=== PATIENT | female | born 1940 | race Caucasian/White ===

== ENCOUNTER 2016-06-25 11:49 | Inpatient (IN) | payer OTHER ==
[~2016-06-25] VITALS: Ht 157.5 cm; Wt 93.2 kg
--- NOTE | ~2016-06-25 | CON ---
[place], [place] REPORT OF CONSULTATION NAME: [facility]ISA LOVE [facility] [id number] UNIT #: [id number] ROOM: 509 DOCTOR: RUPESH MONZON MD BIRTHDATE: [birth year] DOS: 06/26/2016 ADDENDUM The patient examined again and discussed with the patient in detail. Mental status has cleared up better. Her repeat troponin came, I was just notified it is 0.226. Discussed with the . He told me that the patient did have jaw pain yesterday in the area and the patient does not have any pain now, hemodynamically stable. No acute ST depression or elevation in the EKG, probably this suggests a non-ST elevation FL or unstable angina. The patient is already on Plavix, FABIOLA inhibitors, lipid lowering agents, aspirin and beta blockers. I agree with the present care. We will get an echocardiogram. I want her to be treated for the pneumonia and then probably set her up for a heart catheterization on Wednesday. If she has recurrent symptoms. We will try to do it sooner or any hemodynamic compromise. I want her to have some antibiotics for the clearing of the pneumonia before the heart catheterization is done. Agree with continuing with heparin for 24 hours and continue with aspirin, Plavix and beta blockers. Thank you for this interesting consultation and I will follow up with you. RUPESH MONZON MD CM:CONSTR:REPORT OF CONSULTATION 0718 06/29/16 1444 interface
--- NOTE | ~2016-06-25 | CON ---
[place], [place] REPORT OF CONSULTATION NAME: LISA LOVE UNIT #: [id number] ROOM: 509 DOCTOR: NICOLÁS GOFFRUPESH BIRTHDATE: [birth year] DOS: 06/26/2016 HISTORY OF PRESENT ILLNESS: The patient is a 76-year-old female admitted with altered mental status, unresponsive at home. She was given fluids and IV Levaquin, states that she does seem to be little better. states that this is how she has been in the past with urinary tract infection and pneumonia. No chest discomfort. The patient has a low dose of Namenda. She was recently been requested referral to a neurologist from the PCP and that has not been done. PAST MEDICAL HISTORY: Significant for coronary artery disease, congestive heart failure, chronic back pain, chronic kidney disease, dementia, depression, hypertension, footdrop gastroesophageal reflux disease. PAST SURGICAL HISTORY: Appendectomy, coronary stent, hypertension and hyperlipidemia, cholecystectomy. SOCIAL HISTORY: Does not drink or smoke. FAMILY HISTORY: Positive for coronary artery disease. HOME MEDICATIONS: Include clopidogrel, lisinopril, magnesium, metoprolol, potassium. REVIEW OF SYSTEMS: Somewhat limited because of altered mental status. HEENT: No visual disturbances or hearing problems. CARDIOVASCULAR SYSTEM: As described in HPI. No chest pain or shortness of breath. RESPIRATORY SYSTEM: No shortness of breath. ABDOMEN: Reports loss of appetite. No pain. GENITOURINARY: No dysuria. NEUROLOGIC: As mentioned in HPI. PSYCHIATRIC: Denies any depression. PHYSICAL EXAMINATION: VITAL SIGNS: Blood pressure is 130/40, patient is in sinus rhythm. HEENT: Unremarkable. NECK: Supple, no JVD. LUNGS: Clear to auscultation and percussion. HEART: Sounds are regular. ABDOMEN: Soft, nontender. NEUROLOGICAL: Moving all the extremities. LABORATORY DATA: Within normal limits. Troponin is negative. Lactic acid is 2.4. Hemoglobin and hematocrit within normal limits. EKG sinus with nonspecific ST-T changes. CT of the head is normal, patchy left perihilar opacity pneumonia. IMPRESSION: Septicemia, fever, probable pneumonia, history of coronary artery disease, chronic kidney disease, dementia, history of congestive heart failure, [place], [place] RE[facility] CONSULTATION [id number] UNIT #: [id number] ROOM: 509 DOCTOR: NICOLÁS GOFF,RUPESH BIRTHDATE: [birth year] altered mental status. Troponin elevation is very minimal which could be multifactorial, could be demand, it is 0.094. No acute EKG changes. RECOMMENDATIONS: Continue the present management. Continue with aspirin and Plavix. Get an echocardiogram. The last echo was in 2016, about 45%, history of CHF. Monitor the heart rate and blood pressure very closely. We will review the echocardiogram. I think it is more demand rather than any cardiac event at this point and we will follow up. RUPESH MONZON MD CM:CONSTR:REPORT OF CONSULTATION 0700 06/27/16 0057 interface
--- NOTE | ~2016-06-25 | CON ---
[place], [place] REPORT OF CONSULTATION NAME: LISA LOVE UNIT #: [id number] ROOM: 509 DOCTOR: AUGIE LÓPEZ MD BIRTHDATE: [birth year] DOS: 06/26/2016 PSYCHIATRIC CONSULTATION CHIEF COMPLAINT: "I have not been acting myself." HISTORY OF PRESENT ILLNESS: This is a 76-year-old white female who presented to the Emergency Room at [facility] due to episodes of unresponsiveness and an alteration in mental status. The patient's attempted to wake her up, but she was almost unarousable and then when she did wake up, she was talking nonsensical and was very confused. She was ultimately admitted to the hospital for further medical evaluation and treatment. Of note, the patient has had significant weight loss in the last year of over 70 pounds and has not been eating well, sleeping well, and has been progressively more confused. PAST MEDICAL HISTORY: Remarkable for coronary artery disease; congestive heart failure; chronic back pain; chronic kidney disease, stage unknown; depression; hypertension; GERD; hyperlipidemia; irritable bowel syndrome; mitral regurg; overactive bladder; and seasonal allergies. MENTAL STATUS: The patient is alert and oriented to person, place, and approximate to time. Mood does seem to be depressed. She is rather flat and blunted with a constricted range. She initially denied depression, but then did admit that she has been depressed and tears rolled in her eyes. She endorsed multiple neurovegetative symptoms as well. There is no hypomania or josue. There are no psychotic symptoms. Memory has some gaps. DIAGNOSES: Major depression, recurrent. Rule out dementia. PLAN: I will discontinue her Celexa in lieu of Remeron 15 mg at bedtime. I will also add zinc sulfate 220 mg in the morning. Both of these should improve her sense of taste and improve appetite while the Remeron will also aid sleep in combat to depression. I do not think at this point, she requires further psychiatric intervention in an inpatient basis, but would benefit from outpatient followup. AUGIE LÓPEZ MD CM:CONSTR:REPORT OF CONSULTATION 1003 06/27/16 0217 interface
[2016-06-25 11:49] VITALS: BP 152/56
[~2016-06-25 11:49] MED LIST: AMBIEN5 MG PO; AMOXIL500 M1 PO; ASPI-COR81 M1; BACTRIM 400 MG-1 TAB PO; DICLOFENAC SOD75 MG PO; KLOR-CON20 MEQ; LISINOPRIL HCTZ1 TA1 PO; LOPRESSOR25 MG PO; LOPRESSOR50 MG PO; MAG-OX 400400 MG PO; MEDROL DOSEPAK4 MG PO; NORVASC5 MG PO; OMEPRAZOLE MAGN20 M1 PO; OXYBUTYNIN5 MG PO; PERCOCET 325 MG1 TA6 PO; PLAVIX75 MG PO; SIMVASTATIN40 MG PO
[2016-06-25] MEDS ORDERED: CYCLOBENZAPRINE10 MG PO (12:11)
[2016-06-25] MEDS ORDERED: DICLOFENAC NA PO (12:11)
[2016-06-25] MEDS ORDERED: ZESTRIL20 MG PO (12:12)
[2016-06-25] MEDS ORDERED: CLARITIN10 MG PO (12:12)
[2016-06-25] MEDS ORDERED: CITALOPRAM10 MG PO (12:12)
[2016-06-25] MEDS ORDERED: MAGNESIUM OXID400 MG PO (12:13)
[2016-06-25] MEDS ORDERED: Lopressor25 MG PO (12:14)
[2016-06-25] MEDS ORDERED: NAMENDA10 MG PO (12:14)
[2016-06-25] MEDS ORDERED: ULTRAM50 MG PO (12:14)
[2016-06-25] MEDS ORDERED: OXYBUTYNIN5 MG PO (12:17)
[2016-06-25] MEDS ORDERED: POTASSIUM GLUCO99 MG PO (12:17)
[2016-06-25] MEDS ORDERED: PLAVIX75 M1 PO (12:18)
[2016-06-25] MEDS ORDERED: OMEPRAZOLE40 MG PO (12:18)
[2016-06-25] MEDS ORDERED: MACROBID100 M1 PO (12:19)
[2016-06-25 12:30] LABS: BILIRUBIN NEGATIVE (NEGATIVE); BLOOD NEGATIVE (NEGATIVE); CLARITY SL CLOUDY (CLEAR); COLOR YELLOW (YELLOW); GLUCOSE NEGATIVE (NEGATIVE); KETONE NEGATIVE (NEGATIVE); LEUKO ESTERASE NEGATIVE (NEGATIVE); NITRITE NEGATIVE (NEGATIVE); PROTEIN 2+ (NEGATIVE); UROBILINOGEN 0.2 E.U./dl (0.2-1.0)
[2016-06-25 12:34] LABS: HEMATOCRIT 32.4 % (37.0-47.0); HEMOGLOBIN 10.4 g/dl (12.0-16.0); MEAN CELL VOLUME 97.9 fl (81.0-99.0); MEAN CORPUSCULAR HGB 31.4 pg (27.0-31.0); MEAN CORPUSCULAR HGB CONC 32.1 g/dl (33.0-37.0); MEAN PLATELET VOLUME 9.6 fl (9.6-12.3); PLATELET COUNT AUTOMATED 110 10*3/uL (130-400); RED BLOOD COUNT 3.31 10*6/uL (4.10-5.10); RED CELL DISTRI WIDTH 13.3 % (0-14.5); WHITE BLOOD COUNT 7.9 10*3/uL (4.8-10.8)
[2016-06-25 12:41] LABS: URINE REFLEX COMMENT NO (NO); WBC 0-2 wbc/hpf (0-5)
[2016-06-25 12:50] LABS: POTASSIUM 3.4 mmol/L (3.5-5.1)
[2016-06-25 12:56] LABS: TROPONIN I 0.094 ng/ml (<0.045)
[2016-06-25 12:59] LABS: LYMPHOCYTE # 0.1 10*3/uL (1.3-4.4); MONOCYTE # 0.2 10*3/uL (0.1-1.0); NEUTROPHIL # 7.7 10*3/uL (2.3-7.9); NEUTROPHILS 97 % (47-73); PLATELET SUFFICIENCY LOW (NORMAL); TEAR DROP CELLS FEW; TOTAL CELLS COUNTED 100 #CELLS
[2016-06-25 13:35] VITALS: BP 161/56
[2016-06-25 14:37] VITALS: BP 155/59
[2016-06-25 16:00] VITALS: BP 139/47
[2016-06-25 16:17] LABS: LA>2 REFLEX 2 HR DRAW NOW
[2016-06-25 16:40] LABS: LA>2 RFLX FOLLOW UP AT 2 HRS 2.4 mmol/L (0.4-2.0)
[2016-06-25 18:31] LABS: LA>2 REFLEX 4 HR DRAW NOW
[2016-06-25 20:00] VITALS: BP 128/97
[2016-06-25 20:30] VITALS: BP 124/82
[2016-06-26] VITALS: BP 127/53
[2016-06-26 07:01] LABS: HEMATOCRIT 30.5 % (37.0-47.0); HEMOGLOBIN 9.8 g/dl (12.0-16.0); MEAN CELL VOLUME 98.1 fl (81.0-99.0); MEAN CORPUSCULAR HGB 31.5 pg (27.0-31.0); MEAN CORPUSCULAR HGB CONC 32.1 g/dl (33.0-37.0); MEAN PLATELET VOLUME 10.4 fl (9.6-12.3); PLATELET COUNT AUTOMATED 109 10*3/uL (130-400); RED BLOOD COUNT 3.11 10*6/uL (4.10-5.10); RED CELL DISTRI WIDTH 13.5 % (0-14.5); WHITE BLOOD COUNT 3.9 10*3/uL (4.8-10.8)
[2016-06-26 07:14] LABS: HEMOGLOBIN A1c 5.9 % (4.8-5.6)
[2016-06-26 07:32] LABS: ALBUMIN 2.7 gm/dl (3.1-4.5); FREE T4 1.33 ng/dl (0.76-1.46); MAGNESIUM 1.7 mg/dL (1.5-2.1); PHOSPHOROUS 3.3 mg/dL (2.5-4.9); POTASSIUM 3.5 mmol/L (3.5-5.1); TOTAL PROTEIN 5.9 gm/dL (6.4-8.2)
[2016-06-26 07:36] LABS: LYMPHOCYTE # 0.2 10*3/uL (1.3-4.4); NEUTROPHIL # 3.7 10*3/uL (2.3-7.9); NEUTROPHILS 94 % (47-73); PLATELET SUFFICIENCY LOW (NORMAL); ROULEAUX SLIGHT; TOTAL CELLS COUNTED 100 #CELLS
[2016-06-26 07:37] LABS: THYROID STIM HORMONE (HS) 1.77 uIU/ml (0.358-4.75)
[2016-06-26 07:58] LABS: VITAMIN D, 25-HYDROXY 34.6 ng/mL (30-100)
[2016-06-26 08:00] VITALS: BP 123/44
[2016-06-26 08:10] LABS: FOLIC ACID > 24.00 ng/mL (>5.38)
[2016-06-26 12:00] VITALS: BP 110/62
[2016-06-26 16:00] VITALS: BP 120/66
[2016-06-26 20:00] VITALS: BP 127/67
[2016-06-27] VITALS: BP 132/50
[2016-06-27 06:39] LABS: BASO % 0.3 % (0.0-1.0); EOS # 0.5 10*3/uL (0.0-0.4); EOS % 12.7 % (1.0-4.0); HEMATOCRIT 30.2 % (37.0-47.0); HEMOGLOBIN 9.5 g/dl (12.0-16.0); LYMPH % 25.5 % (27.0-41.0); MEAN CELL VOLUME 98.4 fl (81.0-99.0); MEAN CORPUSCULAR HGB 30.9 pg (27.0-31.0); MEAN CORPUSCULAR HGB CONC 31.5 g/dl (33.0-37.0); MEAN PLATELET VOLUME 10.3 fl (9.6-12.3); MONO # 0.2 10*3/uL (0.1-1.0); MONO % 5.3 % (3.0-9.0); NEUT # 2.1 10*3/uL (2.3-7.9); NEUT % 55.9 % (47.0-73.0); PLATELET COUNT AUTOMATED 95 10*3/uL (130-400); RED BLOOD COUNT 3.07 10*6/uL (4.10-5.10); RED CELL DISTRI WIDTH 13.3 % (0-14.5); WHITE BLOOD COUNT 3.8 10*3/uL (4.8-10.8)
[2016-06-27 06:55] LABS: ALBUMIN 2.6 gm/dl (3.1-4.5); BILIRUBIN, TOTAL 0.3 mg/dl (0.2-1.0); MAGNESIUM 1.8 mg/dL (1.5-2.1); POTASSIUM 3.2 mmol/L (3.5-5.1); TOTAL PROTEIN 5.5 gm/dL (6.4-8.2)
[2016-06-27 07:13] LABS: TROPONIN I 0.063 ng/ml (<0.045)
[2016-06-27 08:00] VITALS: BP 170/70
[2016-06-27 12:00] VITALS: BP 142/62
[2016-06-27 16:00] VITALS: BP 133/61
[2016-06-27 20:00] VITALS: BP 121/81; BP 134/71
[2016-06-28] VITALS: BP 152/58
[2016-06-28 06:29] LABS: BASO % 0.3 % (0.0-1.0); EOS # 0.5 10*3/uL (0.0-0.4); EOS % 12.4 % (1.0-4.0); HEMATOCRIT 29.3 % (37.0-47.0); HEMOGLOBIN 9.5 g/dl (12.0-16.0); LYMPH # 1.1 10*3/uL (1.3-4.4); LYMPH % 31.1 % (27.0-41.0); MEAN CORPUSCULAR HGB 32.1 pg (27.0-31.0); MEAN CORPUSCULAR HGB CONC 32.4 g/dl (33.0-37.0); MEAN PLATELET VOLUME 10.2 fl (9.6-12.3); MONO # 0.3 10*3/uL (0.1-1.0); MONO % 7.4 % (3.0-9.0); NEUT # 1.8 10*3/uL (2.3-7.9); NEUT % 48.8 % (47.0-73.0); PLATELET COUNT AUTOMATED 116 10*3/uL (130-400); RED BLOOD COUNT 2.96 10*6/uL (4.10-5.10); RED CELL DISTRI WIDTH 13.3 % (0-14.5); WHITE BLOOD COUNT 3.6 10*3/uL (4.8-10.8)
[2016-06-28 06:37] LABS: ALBUMIN 2.5 gm/dl (3.1-4.5); BILIRUBIN, TOTAL 0.2 mg/dl (0.2-1.0); MAGNESIUM 2.3 mg/dL (1.5-2.1); POTASSIUM 3.6 mmol/L (3.5-5.1); TOTAL PROTEIN 5.6 gm/dL (6.4-8.2)
[2016-06-28 06:48] LABS: PROTHROMBIN TIME 10.7 SECONDS (9.0-12.4)
[2016-06-28 08:00] VITALS: BP 160/59
[2016-06-28 12:00] VITALS: BP 178/56
[2016-06-28 16:00] VITALS: BP 155/66
[2016-06-28 20:00] VITALS: BP 151/50
[2016-06-29] VITALS: BP 118/90
== END 2016-06-29 07:00 | disposition other institution (70) | DRG 871 ==
LOC: ED 11:49 → 5E 14:03 → EDHOLD 14:03 → 5E 14:57
PROVIDERS: Emergency Medicine; Internal Medicine
DX: A41.9 Sepsis, unspecified organism (principal); I21.4 Non-ST elevation (NSTEMI) myocardial infarction; E87.2 Acidosis; J18.9 Pneumonia, unspecified organism; I13.0 Hypertensive heart and chronic kidney disease with heart failure and stage 1 through stage 4 chronic kidney disease, or unspecified chronic kidney disease; D69.6 Thrombocytopenia, unspecified; I50.42 Chronic combined systolic (congestive) and diastolic (congestive) heart failure; F03.90 Unspecified dementia, unspecified severity, without behavioral disturbance, psychotic disturbance, mood disturbance, and anxiety; F33.9 Major depressive disorder, recurrent, unspecified; R65.20 Severe sepsis without septic shock; N18.3 Chronic kidney disease, stage 3 (moderate); M54.5 Low back pain; J30.2 Other seasonal allergic rhinitis; K21.9 Gastro-esophageal reflux disease without esophagitis; E78.5 Hyperlipidemia, unspecified; N32.81 Overactive bladder; E78.00 Pure hypercholesterolemia, unspecified; I25.10 Atherosclerotic heart disease of native coronary artery without angina pectoris; Z96.653 Presence of artificial knee joint, bilateral; D64.9 Anemia, unspecified; K58.0 Irritable bowel syndrome with diarrhea; E87.6 Hypokalemia; R73.9 Hyperglycemia, unspecified; R80.9 Proteinuria, unspecified; D72.810 Lymphocytopenia; I34.0 Nonrheumatic mitral (valve) insufficiency; Z95.5 Presence of coronary angioplasty implant and graft; Z90.49 Acquired absence of other specified parts of digestive tract; Z90.710 Acquired absence of both cervix and uterus; Z98.49 Cataract extraction status, unspecified eye; Z86.73 Personal history of transient ischemic attack (TIA), and cerebral infarction without residual deficits; Z80.0 Family history of malignant neoplasm of digestive organs; Z82.3 Family history of stroke; Z84.89 Family history of other specified conditions; Z79.899 Other long term (current) drug therapy; Z82.49 Family history of ischemic heart disease and other diseases of the circulatory system; Z68.37 Body mass index [BMI] 37.0-37.9, adult

== ENCOUNTER 2016-10-28 10:38 | Emergency (ER) | payer OTHER ==
[~2016-10-28] VITALS: Ht 157.4 cm; Wt 90.7 kg
[~2016-10-28 10:38] MED LIST changes: +CITALOPRAM10 MG PO; +CLARITIN10 MG PO; +CYCLOBENZAPRINE10 MG PO; +DICLOFENAC NA PO; +Lopressor25 MG PO; +MACROBID100 M1 PO; +MAGNESIUM OXID400 MG PO; +NAMENDA10 MG PO; +OMEPRAZOLE40 MG PO; +PLAVIX75 M1 PO; +POTASSIUM GLUCO99 MG PO; +ULTRAM50 MG PO; +ZESTRIL20 MG PO
[2016-10-28 11:06] LABS: BASO % 0.4 % (0.0-1.0); EOS # 0.2 10*3/uL (0.0-0.4); HEMATOCRIT 30.1 % (37.0-47.0); HEMOGLOBIN 9.5 g/dl (12.0-16.0); LYMPH # 1.2 10*3/uL (1.3-4.4); LYMPH % 26.4 % (27.0-41.0); MEAN CELL VOLUME 101.7 fl (81.0-99.0); MEAN CORPUSCULAR HGB 32.1 pg (27.0-31.0); MEAN CORPUSCULAR HGB CONC 31.6 g/dl (33.0-37.0); MEAN PLATELET VOLUME 9.6 fl (9.6-12.3); MONO # 0.2 10*3/uL (0.1-1.0); MONO % 5.2 % (3.0-9.0); NEUT # 2.9 10*3/uL (2.3-7.9); NEUT % 62.8 % (47.0-73.0); PLATELET COUNT AUTOMATED 140 10*3/uL (130-400); RED BLOOD COUNT 2.96 10*6/uL (4.10-5.10); RED CELL DISTRI WIDTH 13.2 % (0-14.5); WHITE BLOOD COUNT 4.6 10*3/uL (4.8-10.8)
[2016-10-28 11:09] LABS: BILIRUBIN NEGATIVE (NEGATIVE); BLOOD TRACE-INTACT (NEGATIVE); CLARITY CLOUDY (CLEAR); COLOR YELLOW (YELLOW); GLUCOSE NEGATIVE (NEGATIVE); KETONE NEGATIVE (NEGATIVE); LEUKO ESTERASE TRACE (NEGATIVE); NITRITE NEGATIVE (NEGATIVE); SPECIFIC GRAVITY 1.025 (1.005-1.030); UROBILINOGEN 0.2 E.U./dl (0.2-1.0)
[2016-10-28 11:15] LABS: BACTERIA TRACE; EPITHELIAL CELLS 16-20
[2016-10-28 11:16] LABS: BUN 16 mg/dl (7-24); CHLORIDE 110 mmol/L (98-107); POTASSIUM 3.5 mmol/L (3.5-5.1); SODIUM 147 mmol/L (136-145)
== END 2016-10-28 13:27 | disposition home or self-care (01) ==
LOC: ED 10:38
PROVIDERS: Emergency Medicine
DX: S70.01XA Contusion of right hip, initial encounter (principal); D64.9 Anemia, unspecified; D72.819 Decreased white blood cell count, unspecified; Z88.8 Allergy status to other drugs, medicaments and biological substances; Z79.899 Other long term (current) drug therapy; I10 Essential (primary) hypertension; W01.0XXA Fall on same level from slipping, tripping and stumbling without subsequent striking against object, initial encounter; Y93.89 Activity, other specified; Y92.89 Other specified places as the place of occurrence of the external cause; Y99.8 Other external cause status

== ENCOUNTER → 2016-11-17 | Outpatient (CLI) | payer OTHER ==
[2016-11-17 10:27] LABS: HEMATOCRIT 31.4 % (37.0-47.0); MEAN CORPUSCULAR HGB 32.2 pg (27.0-31.0); MEAN CORPUSCULAR HGB CONC 31.8 g/dl (33.0-37.0); MEAN PLATELET VOLUME 10.1 fl (9.6-12.3); RED BLOOD COUNT 3.11 10*6/uL (4.10-5.10); RED CELL DISTRI WIDTH 13.2 % (0-14.5); WHITE BLOOD COUNT 4.4 10*3/uL (4.8-10.8)
[2016-11-17 10:55] LABS: ALBUMIN 3.2 gm/dl (3.1-4.5); ALKALINE PHOSPHATASE 69 U/L (45-117); BUN 13 mg/dl (7-24); CHLORIDE 109 mmol/L (98-107); CHOLESTEROL 152 mg/dL (<200); CPK 107 U/L (26-192); HDL CHOLESTEROL 51 mg/dl (40-60); LDL CHOLESTEROL 58 mg/dL (9-159); POTASSIUM 2.9 mmol/L (3.5-5.1); SGOT/AST 22 IU/L (3-35); SGPT/ALT 19 U/L (12-78); SODIUM 144 mmol/L (136-145); TOTAL PROTEIN 6.7 gm/dL (6.4-8.2); TRIGLYCERIDES 213 mg/dl (<150); VLDL CHOLESTEROL 43 mg/dL (6-40)
== END | disposition home or self-care (01) ==
LOC: LAB 10:03
PROVIDERS: Family Medicine
DX: I25.10 Atherosclerotic heart disease of native coronary artery without angina pectoris (principal); E78.00 Pure hypercholesterolemia, unspecified; I10 Essential (primary) hypertension; K21.9 Gastro-esophageal reflux disease without esophagitis; E55.9 Vitamin D deficiency, unspecified; F41.1 Generalized anxiety disorder; E74.00 Glycogen storage disease, unspecified

== ENCOUNTER 2016-11-27 09:17 | Inpatient (IN) | payer OTHER ==
[~2016-11-27] VITALS: Ht 162.6 cm; Wt 66.5 kg
[2016-11-27] VITALS (13 sets, daily range): BP systolic 127–162; BP diastolic 47–73
--- NOTE | ~2016-11-27 | WRIGHTHP ---
[place], [place] PATIENT HISTORY AND PHYSICAL EXAM NAME: LISA LOVE [facility] #: [id number] UNIT #: [id number] ROOM: 419 DOCTOR: LEONOR MONTES DE OCA MD BIRTHDATE: [birth year] DOS: 11/27/2016 DIAGNOSES: The patient is a 76-year-old female with: 1. Coronary artery disease. 2. Adult failure to thrive. 3. Chronic kidney disease stage 3. 4. 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 5. Combined systolic, diastolic type congestive heart failure. 6. Major depression, recurrent. 7. Chronic back pain. 8. Benign essential hypertension. 9. Gastroesophageal reflux disease and esophagitis. 10. Overactive bladder. 11. Mixed hyperlipidemia. 12. Irritable bowel syndrome with chronic diarrhea. 13. Normocytic anemia, anemia of chronic disease. 14. Thrombocytopenia, chronic. 15. Chronic hypokalemia. The patient presented to the Emergency Department from home where she has been off and on confused for many months and had multiple hospital admissions. According to patient's daughter, she has been quite confused even more so recently. Previously, patient was confused when she had a urinary tract infection and she normally lives at home and is helped by her . There have been no complaints of any chest pain, no shortness of breath, no GI or urinary symptoms except for chronic diarrhea. REVIEW OF SYSTEMS: LUNGS: No increasing shortness of breath or wheezing. GASTROINTESTINAL: No nausea, vomiting. Chronic diarrhea, and no history of constipation. CARDIOVASCULAR SYSTEM: No chest pains or palpitations. ALLERGIES: No known drug allergies. PHYSICAL EXAMINATION: GENERAL APPEARANCE: The patient does wake up, but goes right back to sleep. She is pleasantly confused. Moderate obesity and generalized weakness, trace leg and pedal edema and mental confusion. VITAL SIGNS: Blood pressure 127/73, breathing normally, heart rate of 77 beats per minute, temperature 99.1 degrees Fahrenheit. HEENT AND NECK: Extraocular movements are intact. Sclerae are anicteric. Oral mucosa is moist and clean. No obvious facial weakness. Neck is supple without any lymphadenopathy. No thyromegaly. No JVD. No carotid arterial bruits. LUNGS: Clear to auscultation. No wheezing. No rhonchi. CARDIOVASCULAR SYSTEM: Heart rate is regular in rate and rhythm. S1 and S2 normally audible. No significant murmur or any other abnormal cardiac sounds. ABDOMEN: Soft, nontender. No obvious organomegaly. Bowel sounds are present. No obvious herniation. EXTREMITIES: Without significant cyanosis or edema. Warm to touch. [place], [place] PATIENT HISTORY AND PHYSICAL EXAM NAME: LISA LOVE UNIT #: [id number] ROOM: 419 DOCTOR: LEONOR MONTES DE OCA MD BIRTHDATE: [birth year] CENTRAL NERVOUS SYSTEM: Alert and oriented x 3. Cranial nerves II-XII are intact. Speech is normal. The patient is able to move all extremities. Normal muscle strength. Deep tendon reflexes are equal on both sides. Plantars were downgoing. LABORATORY DATA: CT of the abdomen and pelvis without any acute abnormality. Repeat lactic acid level was normal at 1.1. Chest x-ray showing no acute process. Urinalysis showing no signs of urine infection, no leukocytosis on CBC. hemoglobin 9.5. Normal serum electrolytes except for potassium low at 3, some elevation of liver enzymes. AST 318, ALT 130, alkaline phosphatase 156. PT, PTT were baseline. Urine cultures were negative. IMPRESSION: The patient with severe adult failure to thrive. I will take bedsore precautions, turn her every 2 hours and using an air mattress. The patient also has gydr-rs-ubtqdezf protein calorie malnutrition. The patient has no obvious reason for decline except for adult failure to thrive and Alzheimer's type dementia. 1. Wdtw-pa-usqoqxmi protein-calorie malnutrition. Dietary to follow. The patient has not been eating well. 2. Chronic hypokalemia, apparently related to chronic diarrhea, which has been blamed on irritable bowel syndrome in the past. I will check his stool for C. diff and continue potassium supplements. The patient was also on diuretics, which has been stopped. 3. History of coronary artery disease of the [place] vessels without any recent chest pains. 4. Mixed systolic, diastolic type chronic congestive heart failure, compensated. 5. Benign essential hypertension. I will monitor blood pressures and treat accordingly. Overall, adult failure to thrive, I will try to get her to half-way facility for rehabilitation and I have asked the family to consider changing code status to DNR comfort care because of her progressive decline of her health, which is apparently age-related and her overall health status is poor including protein-calorie malnutrition and persistent failure to thrive. I am also consulting palliative care to talk to the family. [place], [place] PATIENT HISTORY AND PHYSICAL EXAM NAME: LISA LOVE UNIT #: [id number] ROOM: [facility] DOCTOR: LEONOR MONTES DE OCA MD BIRTHDATE: [birth year] LEONOR MONTES DE OCA MD CM:HISPHYS:PATIENT HISTORY AND PHYSICAL EXAMINATION [phone] LEONOR MONTES DE OCA MD 11/27/162156 interface
--- NOTE | ~2016-11-27 | DS ---
[place], [place] DISCHARGE SUMMARY NAME: LISA LOVE [facility] #: [id number] UNIT #: [id number] ROOM: 419 DOCTOR: LEONOR MONTES DE OCA MD BIRTHDATE: [birth year] DOS: 11/28/2016 DISCHARGE DIAGNOSES: 1. Altered mental status. The patient back to being alert and oriented. 2. Chronic diarrhea, Clostridium difficile, stool negative. 3. Urine cultures negative. 4. Chronic hypokalemia, apparently related to chronic diarrhea, treated. 5. Anemia of chronic disease. 6. Chronic kidney disease stage 3. 7. Adult failure to thrive. 8. Coronary artery disease of hughes vessels. 9. Combined systolic and diastolic type congestive heart failure. 10. Benign essential hypertension. 11. Gastroesophageal reflux disease and esophagitis. 12. Mixed hyperlipidemia. 13. Irritable bowel syndrome. 14. Normocytic anemia of chronic disease. 15. Chronic thrombocytopenia. HOSPITAL COURSE: The patient presented to the Emergency Department where she was being taken care of at home. The patient does get confused off and on and she became very confused the day before admission and was brought to the Emergency Department and admitted. The patient had no obvious signs of any lung or kidney infection and no leukocytosis, but she did have minor left shift with 90% segs and she did get a fever of up to 101 degrees Fahrenheit after admission. The patient is afebrile now and alert and oriented x 3 this morning and also ambulating. The patient's daughters are present with her and would take her home since she appears to have achieved maximum benefit from this admission. Late onset of Alzheimer's type dementia and combined delirium. The patient was taken off tramadol and started on Tylenol 1000 mg 3 times a day for pain control. I have also recommended that family should check on her Namenda and parameter and see how patient does without taking these medications and then decide whether these medications need to be continued. Idea is that keep her on minimum medications and see how she does. Adult failure to thrive and mental confusion off and on. The patient may require senior living placement if her condition does not improve. The patient's takes care of at home. Benign essential hypertension with controlled blood pressures with treatment. Blood pressures were be monitored. Chronic diarrhea from uncertain etiology. Stool for C. diff toxin was negative. Chronic hypokalemia, apparently related to diarrhea. The patient's potassium levels were replaced and have normalized. [place], [place] DISCHARGE SUMMARY NAME: LISA LOVE [facility] #: [id number] UNIT #: [id number] ROOM: 419 DOCTOR: FALGUNI GOFF,LEONOR Fleming BIRTHDATE: [birth year] Late onset Alzheimer's type dementia, treated with Namenda. Chronic kidney disease stage 3, stable. Coronary artery disease of hughes vessels without chest pains. LABORATORY DATA: Normal serum electrolytes. Even BUN and creatinine have normalized after patient's Lasix was stopped. The patient's potassium level needs to be followed as an outpatient. The patient to be followed by Dr. Juan Alberto Goncalves, her PCP. The patient has been asked to follow up with her PCP on Wednesday soon after discharge. DISCHARGE MANAGEMENT: Potassium chloride 40 mEq daily, memantine 10 mg daily, magnesium oxide 400 mg b.i.d., lisinopril 20 mg a day, Plavix 75 mg a day, citalopram 10 mg daily. Followup with PCP, Dr. Juan Alberto Goncalves within a few days, which is on Wednesday. Tylenol 1000 mg 3 times a day. LEONOR MONTES DE OCA MD CM:VERONICA [id number] LEONOR MONTES DE OCA MD 11/28/161846 interface
[2016-11-27 10:06] LABS: HEMATOCRIT 30.8 % (37.0-47.0); HEMOGLOBIN 9.5 g/dl (12.0-16.0); MEAN CELL VOLUME 103.7 fl (81.0-99.0); MEAN CORPUSCULAR HGB CONC 30.8 g/dl (33.0-37.0); MEAN PLATELET VOLUME 10.1 fl (9.6-12.3); PLATELET COUNT AUTOMATED 123 10*3/uL (130-400); RED BLOOD COUNT 2.97 10*6/uL (4.10-5.10); RED CELL DISTRI WIDTH 13.2 % (0-14.5); WHITE BLOOD COUNT 6.3 10*3/uL (4.8-10.8)
[2016-11-27 10:16] LABS: ACT PARTIAL THROMBO TIME 21.2 SECONDS (20.8-31.5); INTERNATIONAL NORM RATIO 1.1 (2.0-3.5)
[2016-11-27 10:21] LABS: ALBUMIN 2.9 gm/dl (3.1-4.5); ALKALINE PHOSPHATASE 156 U/L (45-117); BUN 14 mg/dl (7-24); CHLORIDE 113 mmol/L (98-107); CREATININE 0.92 mg/dL (0.55-1.02); LIPASE 202 U/L (73-393); MAGNESIUM 1.3 mg/dL (1.5-2.1); SGOT/AST 318 IU/L (3-35); SGPT/ALT 130 U/L (12-78); SODIUM 145 mmol/L (136-145); TOTAL PROTEIN 6.3 gm/dL (6.4-8.2)
[2016-11-27 10:33] LABS: PLATELET SUFFICIENCY LOW (NORMAL); TOTAL CELLS COUNTED 100 #CELLS
[2016-11-27 10:55] LABS: BILIRUBIN NEGATIVE (NEGATIVE); BLOOD 1+ (NEGATIVE); CLARITY CLEAR (CLEAR); COLOR YELLOW (YELLOW); GLUCOSE NEGATIVE (NEGATIVE); KETONE NEGATIVE (NEGATIVE); LEUKO ESTERASE NEGATIVE (NEGATIVE); NITRITE NEGATIVE (NEGATIVE); PH 6.5 (5.0-9.0); UROBILINOGEN 0.2 E.U./dl (0.2-1.0)
[2016-11-27] MEDS ORDERED: NITROFURANTOIN100 M9 PO (11:22)
--- NOTE | 2016-11-27 12:12 | NUR ---
PT AWAITING CAT SCAN AND ADMISSION. RESTING COMFORTABLY IN BED. NO ACUTE DISTRESS NOTED. NO VOICED NEEDS/COMPLAINTS AT THIS TIME. VSS. FAMILY AT BEDSIDE. WILL CONTINUE TO MONITOR.
--- NOTE | 2016-11-27 13:40 | NUR ---
PLEASANTLY CONFUSED. MEDICATED FOR ABDOMINAL PAIN, SEE EMAR. SPO2 99% ON 2L PER NC. FAMILY AT BEDSIDE. PATIENT TRASPORTED VIA CART TO CT SCAN. CONDITION STABLE.
--- NOTE | 2016-11-27 15:09 | NUR ---
WAS NOTIFIED/REPORTED BY SAADIA FROM ER ON PT. WILL ASSUME CARE OF PT.
[2016-11-27] MEDS ORDERED: LASIX40 MG PO (16:56)
[2016-11-27] MEDS ORDERED: KLOR-CON M2020 ME1 PO (16:57)
--- NOTE | 2016-11-27 17:10 | NUR ---
SPOKE TO DR. MONTES DE OCA PER TELEPHONE ON DIET ORDER AND AND PAIN PRN MED. HE ORDERED A REGULAR DIET, AND TYLENOL 1000MG TID. WILL CONTINUE TO MONITOR PT.
--- NOTE | 2016-11-27 18:27 | NUR ---
A 76, admitted to 4E, under the services of Dr. FALGUNI GOFF,LEONOR Fleming with a diagnosis of METABOLIC ENCEPHALOPATHY, ELEVATED LFTS. Chief complaint is WEAKNESS, UTI SYMPTOMS. Patient arrived via ambulatory from ER. Monitor applied. Initial assessment completed. Vital signs taken and recorded. DR. FALGUNI GOFF,LEONOR Fleming notified of admission to the unit. Orders received. See assessment for past medical history, medications and allergies. Patient and/or family oriented to unit. [facility] visitation policy reviewed. Clothing/patient valuable form completed. RAY LARSON
--- NOTE | 2016-11-27 19:45 | NUR ---
WAS NOTIFIED OF PATIENT'S TEMP OF 101. TALKED TO DR. MONTES DE OCA. NEW ORDER TO GIVE ANOTHER DOSE OF TYLENOL AND BLOOD CULTURES. WILL REASSESS AFTER TYLENOL GIVEN.
--- NOTE | 2016-11-27 20:09 | NUR ---
TYLENOL GIVEN FOR TEMP OF 101. WILL REASSESS.
--- NOTE | 2016-11-27 22:18 | NUR ---
TYLENOL EFFECTIVE FOR TEMP OF 101, NOW 98.7
[2016-11-28] VITALS: BP 154/66
[2016-11-28 06:16] LABS: BASO % 0.2 % (0.0-1.0); EOS # 0.1 10*3/uL (0.0-0.4); EOS % 2.2 % (1.0-4.0); HEMATOCRIT 29.7 % (37.0-47.0); HEMOGLOBIN 9.1 g/dl (12.0-16.0); LYMPH # 0.4 10*3/uL (1.3-4.4); LYMPH % 7.7 % (27.0-41.0); MEAN CELL VOLUME 102.8 fl (81.0-99.0); MEAN CORPUSCULAR HGB 31.5 pg (27.0-31.0); MEAN CORPUSCULAR HGB CONC 30.6 g/dl (33.0-37.0); MEAN PLATELET VOLUME 10.7 fl (9.6-12.3); MONO # 0.3 10*3/uL (0.1-1.0); MONO % 5.3 % (3.0-9.0); NEUT # 4.2 10*3/uL (2.3-7.9); NEUT % 84.2 % (47.0-73.0); PLATELET COUNT AUTOMATED 111 10*3/uL (130-400); RED BLOOD COUNT 2.89 10*6/uL (4.10-5.10); RED CELL DISTRI WIDTH 13.4 % (0-14.5); WHITE BLOOD COUNT 4.9 10*3/uL (4.8-10.8)
[2016-11-28 06:25] LABS: BUN 18 mg/dl (7-24); CHLORIDE 113 mmol/L (98-107); CREATININE 0.83 mg/dL (0.55-1.02); POTASSIUM 3.7 mmol/L (3.5-5.1); SODIUM 145 mmol/L (136-145)
--- NOTE | 2016-11-28 06:50 | NUR ---
24 HR chart check completed.
[2016-11-28 08:00] VITALS: BP 140/72
--- NOTE | 2016-11-28 09:20 | NUR ---
PATIENT IS RESTING COMFORTABLY IN BED. PATIENT STATES THAT THEY ARE FEELING MUCH BETTER TODAY. PATIENT IS ON THE MONITOR WITH NSR WITH OCC PVC. PATIENT DENIES ANY PAIN, DISCOMFORT, OR SOB. SEE SHIFT ASSESSMENT. HOB AT 30 DEGREES, CALL LIGHT IS WITHIN REACH.
[2016-11-28 12:00] VITALS: BP 144/74
--- NOTE | 2016-11-28 12:46 | NUR ---
PATIENT FAMILY AND PATIENT WERE REQUESTING AN ANTI-DIARRHEAL. PATIENTS STOOL WAS LOOSE BUT STILL FORMED, BUT FAMILY STILL WANTED ONE DUE TO CHRONIC DIARRHEA AND USE AT HOME. PATIENT ALSO HAD ESCORIATED SKIN UNDER THE BREASTS AND PERITONEAL AREA. WAS CONTACTED AND SAID ORDERS WOULD BE PUT IN.
[2016-11-28] MEDS ORDERED: TYLENOL EXTRA500 MG PO (15:31)
--- NOTE | 2016-11-28 16:29 | NUR ---
[facility] Discharge instructions reviewed with patient/family. Patient receptive and verbalizes understanding. Follow-up care arranged. Written instructions given to patient/family. CHANTE SANTOS
== END 2016-11-28 16:29 | disposition home or self-care (01) | DRG 391 ==
LOC: ED 09:17 → EDHOLD 14:46 → 4E 15:03
PROVIDERS: Emergency Medicine; ADMIT Internal Medicine
DX: K52.9 Noninfective gastroenteritis and colitis, unspecified (principal); G93.41 Metabolic encephalopathy; E44.0 Moderate protein-calorie malnutrition; I13.0 Hypertensive heart and chronic kidney disease with heart failure and stage 1 through stage 4 chronic kidney disease, or unspecified chronic kidney disease; N18.3 Chronic kidney disease, stage 3 (moderate); D69.6 Thrombocytopenia, unspecified; I50.42 Chronic combined systolic (congestive) and diastolic (congestive) heart failure; F05 Delirium due to known physiological condition; F33.9 Major depressive disorder, recurrent, unspecified; G30.1 Alzheimer's disease with late onset; D63.8 Anemia in other chronic diseases classified elsewhere; E87.6 Hypokalemia; R62.7 Adult failure to thrive; I25.10 Atherosclerotic heart disease of native coronary artery without angina pectoris; K21.0 Gastro-esophageal reflux disease with esophagitis; Z51.5 Encounter for palliative care; E78.2 Mixed hyperlipidemia; Z66 Do not resuscitate; F02.80 Dementia in other diseases classified elsewhere, unspecified severity, without behavioral disturbance, psychotic disturbance, mood disturbance, and anxiety; Z96.653 Presence of artificial knee joint, bilateral; E78.00 Pure hypercholesterolemia, unspecified; G89.29 Other chronic pain; M54.9 Dorsalgia, unspecified; Z95.5 Presence of coronary angioplasty implant and graft; Z90.49 Acquired absence of other specified parts of digestive tract; Z79.899 Other long term (current) drug therapy; Z98.41 Cataract extraction status, right eye; Z98.42 Cataract extraction status, left eye; Z90.710 Acquired absence of both cervix and uterus; I25.2 Old myocardial infarction; Z82.3 Family history of stroke; Z80.49 Family history of malignant neoplasm of other genital organs; Z83.3 Family history of diabetes mellitus; Z68.30 Body mass index [BMI] 30.0-30.9, adult

== ENCOUNTER → 2017-01-20 | Outpatient (CLI) | payer OTHER ==
[~2017-01-20] MED LIST changes: +KLOR-CON M2020 ME1 PO; +LASIX40 MG PO; +NITROFURANTOIN100 M9 PO; +TYLENOL EXTRA500 MG PO
[2017-01-20 12:25] LABS: HEMOGLOBIN 9.7 g/dl (12.0-16.0); MEAN CORPUSCULAR HGB 32.6 pg (27.0-31.0); MEAN CORPUSCULAR HGB CONC 31.3 g/dl (33.0-37.0); MEAN PLATELET VOLUME 9.9 fl (9.6-12.3); RED BLOOD COUNT 2.98 10*6/uL (4.10-5.10); RED CELL DISTRI WIDTH 14.3 % (0-14.5); WHITE BLOOD COUNT 5.6 10*3/uL (4.8-10.8)
[2017-01-20 12:53] LABS: ALBUMIN 3.4 gm/dl (3.1-4.5); CREATININE 1.32 mg/dL (0.55-1.02); POTASSIUM 4.9 mmol/L (3.5-5.1)
[2017-01-20 12:55] LABS: TOTAL PROTEIN 7.4 gm/dL (6.4-8.2)
== END | disposition home or self-care (01) ==
LOC: LAB 11:52
PROVIDERS: Family Medicine
DX: E78.00 Pure hypercholesterolemia, unspecified (principal); I10 Essential (primary) hypertension; D64.9 Anemia, unspecified; R19.7 Diarrhea, unspecified; M19.90 Unspecified osteoarthritis, unspecified site

== ENCOUNTER → 2017-03-29 | Outpatient (CLI) | payer OTHER ==
[2017-03-29 11:49] LABS: ALBUMIN 3.4 gm/dl (3.1-4.5); CREATININE 1.11 mg/dL (0.55-1.02); POTASSIUM 4.2 mmol/L (3.5-5.1); TOTAL PROTEIN 7.7 gm/dL (6.4-8.2)
[2017-03-29 11:57] LABS: HEMATOCRIT 32.9 % (37.0-47.0); HEMOGLOBIN 10.2 g/dl (12.0-16.0); MEAN CELL VOLUME 103.5 fl (81.0-99.0); MEAN CORPUSCULAR HGB 32.1 pg (27.0-31.0); MEAN PLATELET VOLUME 9.7 fl (9.6-12.3); RED BLOOD COUNT 3.18 10*6/uL (4.10-5.10); RED CELL DISTRI WIDTH 12.4 % (0-14.5); WHITE BLOOD COUNT 7.2 10*3/uL (4.8-10.8)
== END | disposition home or self-care (01) ==
LOC: LAB 10:59
PROVIDERS: Family Medicine
DX: D64.9 Anemia, unspecified (principal)

== ENCOUNTER 2018-03-29 18:18 | Inpatient (IN) | payer OTHER ==
[~2018-03-29] VITALS: Ht 160 cm; Wt 92.1 kg
--- NOTE | ~2018-03-29 | PR ---
[place], [place] PROGRESS NOTE NAME: LISA LOVE [facility] #: [id number] UNIT #: [id number] ROOM: 509 DOCTOR: MEDINA ARTHUR MD BIRTHDATE: [birth year] DOS: 04/03/2018 SUBJECTIVE: I saw this patient yesterday. She has dementia and chronic atrial fibrillation, rate was somewhat fast. Yesterday, she was somewhat lethargic and this may have been from large dose of metoprolol; therefore, this was reduced to 25 b.i.d. and diltiazem CD 120 daily was added. This morning, she feels fine. She does not have any chest pain or breathing difficulty. No palpitations. She is a little depressed. Currently, her daughter is sick and is in a hospital in [place]. PHYSICAL EXAMINATION: GENERAL: The patient who is somewhat tired looking, seems depressed. She is not tachypneic. VITAL SIGNS: Temperature is normal. Pulse is 76, irregular, blood pressure 106/58. NECK: Normal JVP. LUNGS: She has lot of crackles, does have rhonchi in both lungs. EXTREMITIES: No edema in lower extremity. Monitor shows atrial fibrillation with rate in the 70s and 80s. IMPRESSION: This patient's atrial fibrillation is chronic and rate is now nicely controlled with 120 mg of diltiazem and 25 b.i.d. of the metoprolol tartrate. This should be continued. She is anticoagulated. MEDINA ARTHUR MD CM:PNANTOLIN [id number] MEDINA ARTHUR MD 04/11/18 1031 interface
--- NOTE | ~2018-03-29 | CON ---
[place], [place] REPORT OF CONSULTATION [id number] UNIT #: [id number] ROOM: 509 DOCTOR: MEDINA ARTHUR MD BIRTHDATE: [birth year] DOS: 04/02/2018 HISTORY OF PRESENT ILLNESS: This is a 78-year-old -[place] woman with a history of chronic atrial fibrillation, coronary artery disease and carries a diagnosis of congestive heart failure, chronic kidney disease stage 3, dementia, depression, essential hypertension, hyperlipidemia who has had coronary stents, appendectomy, back surgery, bilateral knee replacement, hysterectomy, tonsillectomy and adenoidectomy, cataract extraction with lens implant, cholecystectomy and rectal fistula surgery. She does not smoke nor does she drink alcoholic beverages. She was admitted through the Emergency Department. She apparently had been developing generalized weakness and had been falling, although she did not hurt herself. I reviewed HPI of the resident and it appeared that she had fallen a few times. She did not have any palpitation, chest pain or breathing difficulty or swelling in the legs. When she had atrial fibrillation with rapid ventricular rate upon admission, dose of beta amber was increased. HOME MEDICATIONS: Include biotin, cholecalciferol, cyanocobalamin p.o., furosemide 40 mg daily, magnesium oxide 400 b.i.d., Namenda 10 mg daily, metoprolol tartrate 25 mg b.i.d., Remeron 30 mg daily, rivaroxaban 15 mg daily and simvastatin 40 mg daily. PHYSICAL EXAMINATION: GENERAL: This reveals a patient who is sitting in a chair. She is comfortable. She is little slow and answers questions, but some may not be appropriate. She is not in any distress. VITAL SIGNS: Temperature is normal, pulse is irregular at 112 beats per minute, blood pressure 131/76. NECK: JVP is normal. AJR is negative. CARDIAC: Auscultation reveals irregular heart rate at about 108 beats per minute. No murmurs are present and she has trace edema in the lower extremities. RESPIRATORY: She is not tachypneic and percussion note is normal. Auscultation reveals moderately diminished breath sounds bilaterally with a lot of rhonchi and crackles bilaterally. DIAGNOSTIC STUDIES: An ECG had demonstrated atrial fibrillation with a ventricular rate of 129 beats per minute and no infarction. Minimal ST segment depression in chest leads raises the possibility of ischemia. A chest x-ray did not demonstrate any obvious abnormality. LABORATORY DATA: BUN 15, creatinine 1.16, potassium 3.7. ProBNP 10,911. Normal liver enzymes. Troponin was less than 0.035. IMPRESSION: 1. Chronic atrial fibrillation with rapid ventricular rate. A dose of metoprolol was increased to 100 mg b.i.d. and the heart rate has slowed down; however, she seems rather lethargic to me. This may be what she normally is [place], [place] REPORT OF CONSULTATION NAME: LISA LOVE UNIT #: [id number] ROOM: 509 DOCTOR: SANDHYA GOFF,MEDINA BIRTHDATE: [birth year] like, but beta blockers are notorious for causing tired and lethargic feeling. 2. There is no evidence of cardiac decompensation. 3. Coronary artery disease with minimal ST segment depression on initial ECG, but troponin I level is negative. RECOMMENDATIONS: 1. Diltiazem CD 120 mg once a day and will reduce the dose of metoprolol tartrate to 25 mg b.i.d. 2. Her previous echocardiogram had shown normal LV function. She does not require another one. 3. There is no evidence of cardiac decompensation. I thank you on behalf of Dr. Ramos for this consult. MEDINA ARTHUR MD CM:CONSTR:REPORT OF CONSULTATION 1334 04/02/18 1404 interface
--- NOTE | ~2018-03-29 | EKG ---
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
--- NOTE | ~2018-03-29 | EKG ---
[place], [place] ELECTROCARDIOGRAM REPORT NAME: LISA LOVE UNIT #: [id number] ROOM: 509 DOCTOR: EPIPHANY DRAFT REPORT BIRTHDATE: [birth year] [facility] Test Date: 2018-03-29 Test Time: 21:21:38 Pat Name: LISA LOVE Department: 5E Room: 509 Gender: F Maintenance Man: Svetlana Gutiérrez : 1940 Requested By: SWETHA MONTANEZ Order Number: [id number] Reading MD: Phu Mendez MD Measurements Intervals [place] Rate: 129 P: NM: QRS: -3 QRSD: 69 T: 9 QT: 324 QTc: 492 Interpretive Statements Atrial fibrillation Borderline repolarization abnormality Electronically Signed On 03-29-2018 19:33:15 PST by Phu Mendez MD CM:EKGRPT:ELECTROCARDIOGRAM REPORT 20 32 SWETHA MONTANEZ MD EPIPHANY DRAFT REPORT SWETHA MONTANEZ MD
[2018-03-29 18:19] VITALS: BP 141/84
--- NOTE | 2018-03-29 18:28 | NUR ---
NURSE REPORT TO BAYRON HO , FOR CONTINUATION OF CARE.
[2018-03-29 19:00] LABS: BASO % 0.2 % (0.0-1.0); EOS % 0.1 % (1.0-4.0); HEMATOCRIT 36.2 % (37.0-47.0); HEMOGLOBIN 11.8 g/dl (12.0-16.0); LYMPH # 1.1 10*3/uL (1.3-4.4); LYMPH % 8.1 % (27.0-41.0); MEAN CELL VOLUME 100.8 fl (81.0-99.0); MEAN CORPUSCULAR HGB 32.9 pg (27.0-31.0); MEAN CORPUSCULAR HGB CONC 32.6 g/dl (33.0-37.0); MEAN PLATELET VOLUME 10.5 fl (9.6-12.3); MONO # 0.6 10*3/uL (0.1-1.0); MONO % 4.9 % (3.0-9.0); NEUT # 11.3 10*3/uL (2.3-7.9); NEUT % 86.3 % (47.0-73.0); PLATELET COUNT AUTOMATED 184 10*3/uL (130-400); RED BLOOD COUNT 3.59 10*6/uL (4.10-5.10); RED CELL DISTRI WIDTH 14.1 % (0-14.5)
--- NOTE | 2018-03-29 19:10 | NUR ---
REPORT RECEIVED FROM [place] VERMA AT THIS TIME
[2018-03-29 19:16] LABS: ACT PARTIAL THROMBO TIME 28.3 SECONDS (20.8-31.5); INTERNATIONAL NORM RATIO 1.1 (2.0-3.5)
[2018-03-29 19:29] LABS: BILIRUBIN NEGATIVE (NEGATIVE); BLOOD 1+ (NEGATIVE); CLARITY SL CLOUDY (CLEAR); COLOR YELLOW (YELLOW); GLUCOSE NEGATIVE (NEGATIVE); KETONE NEGATIVE (NEGATIVE); LEUKO ESTERASE NEGATIVE (NEGATIVE); NITRITE NEGATIVE (NEGATIVE); PH 6.5 (5.0-9.0); UROBILINOGEN 0.2 E.U./dl (0.2-1.0)
[2018-03-29 19:49] LABS: ALBUMIN 2.8 gm/dl (3.1-4.5); CREATININE 1.16 mg/dL (0.55-1.02); POTASSIUM 3.7 mmol/L (3.5-5.1); TOTAL PROTEIN 6.6 gm/dL (6.4-8.2); TROPONIN I 0.035 ng/ml (<0.045)
[2018-03-29 19:49] LABS: BACTERIA 1+; EPITHELIAL CELLS 0-2; RBC 0-2 rbc/hpf (0-2)
[2018-03-29 20:15] VITALS: BP 143/88
[2018-03-29 20:58] VITALS: BP 124/80
[2018-03-29 21:25] VITALS: BP 120/61
[2018-03-29 21:50] VITALS: BP 126/66
--- NOTE | 2018-03-29 21:50 | NUR ---
Time: 2149 A 78 year old FEMALE admitted to 5E under services of ARNULFO FORBES DO. Pt. arrived via stretcher from ER. Chief complaint: SEPSIS, AFIB WITH RVR, CHANGE IN MENTAL STATUS. ANASTASIYA SINGH
--- NOTE | 2018-03-29 21:50 | NUR ---
ED BAYRON CARNES STATES THAT WOUND PHOTOS WERE TAKEN IN ED.
[2018-03-30] VITALS (9 sets, daily range): BP systolic 104–129; BP diastolic 52–90
[2018-03-30] MEDS ORDERED: REMERON30 M1 PO (00:13)
[2018-03-30] MEDS ORDERED: OMEGA 3 1,0001 EACH PO (00:13)
[2018-03-30] MEDS ORDERED: HARD NAILS2500 MCG PO (00:14)
[2018-03-30] MEDS ORDERED: VITAMIN D5000 UNIT PO (00:14)
[2018-03-30] MEDS ORDERED: VITAMIN B121000 MC1 PO (00:15)
[2018-03-30] MEDS ORDERED: XARELTO15 M1 PO (00:16)
--- NOTE | 2018-03-30 01:01 | NUR ---
IV ACCESSED IN RIGHT WRIST. FLUSHES EASILY WITH BRISK BLOOD RETURN. PT TOLERATED WELL.
--- NOTE | 2018-03-30 07:46 | NUR ---
PHYSICAL THERAPY Nursing screen received. PT orders also received. Thank you. Jenna Parker,PT
[2018-03-30 07:48] LABS: ALBUMIN 2.7 gm/dl (3.1-4.5); ALKALINE PHOSPHATASE 71 U/L (45-117); BUN 14 mg/dl (7-24); CHLORIDE 113 mmol/L (98-107); CHOLESTEROL 153 mg/dL (<200); CREATININE 1.03 mg/dL (0.55-1.02); FREE T4 1.07 ng/dl (0.76-1.46); HDL CHOLESTEROL 55 mg/dl (40-60); LDL CHOLESTEROL 77 mg/dL (9-159); PHOSPHOROUS 3.3 mg/dL (2.5-4.9); POTASSIUM 3.7 mmol/L (3.5-5.1); SGOT/AST 20 IU/L (3-35); SGPT/ALT 14 U/L (12-78); SODIUM 146 mmol/L (136-145); TOTAL PROTEIN 5.7 gm/dL (6.4-8.2); TRIGLYCERIDES 104 mg/dl (<150); VLDL CHOLESTEROL 21 mg/dL (6-40)
[2018-03-30 07:53] LABS: VITAMIN D, 25-HYDROXY 29.3 ng/mL (30-100)
[2018-03-30 07:55] LABS: BASO % 0.2 % (0.0-1.0); EOS # 0.1 10*3/uL (0.0-0.4); EOS % 1.3 % (1.0-4.0); HEMATOCRIT 35.1 % (37.0-47.0); HEMOGLOBIN 10.7 g/dl (12.0-16.0); LYMPH # 0.9 10*3/uL (1.3-4.4); LYMPH % 10.3 % (27.0-41.0); MEAN CORPUSCULAR HGB 31.9 pg (27.0-31.0); MEAN CORPUSCULAR HGB CONC 30.5 g/dl (33.0-37.0); MEAN PLATELET VOLUME 10.5 fl (9.6-12.3); MONO # 0.5 10*3/uL (0.1-1.0); MONO % 5.2 % (3.0-9.0); NEUT # 7.4 10*3/uL (2.3-7.9); NEUT % 82.7 % (47.0-73.0); PLATELET COUNT AUTOMATED 142 10*3/uL (130-400); RED BLOOD COUNT 3.35 10*6/uL (4.10-5.10); RED CELL DISTRI WIDTH 14.1 % (0-14.5); WHITE BLOOD COUNT 8.9 10*3/uL (4.8-10.8)
[2018-03-30 07:56] LABS: MEAN CELL VOLUME 104.8 fl (81.0-99.0)
[2018-03-30 08:05] LABS: ACT PARTIAL THROMBO TIME 31.7 SECONDS (20.8-31.5); INTERNATIONAL NORM RATIO 1.1 (2.0-3.5)
--- NOTE | 2018-03-30 08:55 | NUR ---
LISA LOVE [id number] Please refer to the physician's history and physical for past medical history, comorbid conditions, and allergies. Diagnosis: SEPSIS,CHANGE IN MENTAL STATUS,ATRIAL FIBRILLATION Amarjit Score: 19,LOW OR NO RISK WOUND DESCRIPTIONS: Location of the wound: right medial buttocks Type of wound: DTI Size: 0.7cm x 0.3cm x <0.1cm Tunneling: none Undermining: none Sinus Tract: none Presence of Exudate: none Amount: None Color: dark red, purple Odor: None Periwound Skin Appearance: Normal Wound edges: closed Pain (associated with wound): none at time of assessment How does patient state this happened? pt unable to state how this happened Location of the wound: right lateral buttocks Type of wound: DTI Size: 3.5cm x 0.5cm x <0.1cm Tunneling: none Undermining: none Sinus Tract: none Presence of Exudate: none Amount: None Color: dark red, purple Odor: None Periwound Skin Appearance: Normal Wound edges: closed Pain (associated with wound): none at time of assessment How does patient state this happened? pt unable to state how this happened Satellite areas located to lower abdominal fold and bilateral groins. Surface the patient is resting on: Isoflex SKIN PREVENTION RECOMMENDATION: 1. Pressure redistribution support surface as appropriate 2. Elevate heels 3. Remove boots/TEDS every shift and reapply 4. Head of bed 30 degrees as tolerated 5. Assess nutrition and hydration 6. Manage moisture 7. Avoid the use of containment devices while in bed 8. Use absorptive products on surfaces limit layers of linens on bed 9. Turn and reposition every 1-2 hours in bed and every 1 hour in chair as tolerated 10. Weight shifts every 15 minutes while up in chair 11. Offloading with pillows or device to keep heels elevated off bed 12. Monitor skin at least every shift 13. Inspect under medical devices twice a day WOUND TREATMENT RECOMMENDATIONS: Cleanse lower abdominal folds with soap and water pat area dry then apply nystatin powder every 8 hours DTI guidelines: Cleanse right buttocks medial and lateral with soap and water apply sureprep and cover with optifoam gentle. Wheelchair cushion when oob. Heel raiser pro boots while in bed.
--- NOTE | 2018-03-30 11:11 | NUR ---
Senior Mobile Web Developer in to talk to patient. Patient states lives at HOME with . There are 3 steps in the home. Physician: KELTON ROME Pharmacy: [facility] Home health services: NONE Patient's level of ADLs: MODERATE ASSIST Patient has working utilities: YES DME: [facility] Follow-up physician's appointment after d/c: WILL BE MADE BY HOSPITALIST NURSE DIRECTOR ON DISCHARGE Does patient want to access PORTAL?: NO Discharge plan PT STATES SHE LIVES AT HOME WITH HER . DENIES ANY HOME NEED AT THIS TIME. WILL DISCUSS WITH FAMILY ANY NEEDS. WILL CONTINUE TO FOLLOW. PT STATES WILL TAKE HER HOME ON DISCHARGE.. IRVING BERRIOS
--- NOTE | 2018-03-30 13:17 | NUR ---
Occupational Therapy evaluation attempted this date on 5. Patient c/o feeling very cold and not sleeping all night. OTR will attempt at a later date. Rafia Blair OTR/L
--- NOTE | 2018-03-30 13:54 | NUR ---
PHYSICAL THERAPY PAtient sleepy and unable to stay awake for evaluation attempt. Awakens and drifts off to sleep during conversation. Will let patient rest and attempt tomorrow. Thank you for this referral. Jenna Parker,PT
--- NOTE | 2018-03-30 16:28 | NUR ---
BACK TO ROOM TO TALK WITH FAMILY. DAUGHTER AND PRESENT. THEY FELL PT IS OK TO RETURN HOME BUT WOULD LIKE HOME HEALTH. LIST GIVEN TO THEM BUT THEY STATE THEY HAVE HAD [facility] PREVIOUSLY AND WOULD LIKE TO HAVE THEIR SERVICES AGAIN.
[2018-03-31] VITALS: BP 145/90
[2018-03-31 02:00] VITALS: BP 122/80
[2018-03-31 06:25] LABS: BASO % 0.1 % (0.0-1.0); EOS # 0.3 10*3/uL (0.0-0.4); EOS % 3.8 % (1.0-4.0); HEMATOCRIT 35.1 % (37.0-47.0); HEMOGLOBIN 10.8 g/dl (12.0-16.0); LYMPH # 0.7 10*3/uL (1.3-4.4); LYMPH % 9.9 % (27.0-41.0); MEAN CELL VOLUME 103.5 fl (81.0-99.0); MEAN CORPUSCULAR HGB 31.9 pg (27.0-31.0); MEAN CORPUSCULAR HGB CONC 30.8 g/dl (33.0-37.0); MEAN PLATELET VOLUME 10.3 fl (9.6-12.3); MONO # 0.3 10*3/uL (0.1-1.0); MONO % 4.2 % (3.0-9.0); NEUT # 5.6 10*3/uL (2.3-7.9); NEUT % 81.6 % (47.0-73.0); PLATELET COUNT AUTOMATED 140 10*3/uL (130-400); RED BLOOD COUNT 3.39 10*6/uL (4.10-5.10); RED CELL DISTRI WIDTH 13.9 % (0-14.5); WHITE BLOOD COUNT 6.9 10*3/uL (4.8-10.8)
[2018-03-31 06:38] LABS: CREATININE 1.09 mg/dL (0.55-1.02); POTASSIUM 3.5 mmol/L (3.5-5.1)
[2018-03-31 12:00] VITALS: BP 138/96
--- NOTE | 2018-03-31 14:32 | NUR ---
PT DROWSY AND AWAKENS ONLY TO TAKE MEDICATIONS AND ANSWER QUESTIONS WITH ONE WORD. PT ALSO HAS REDDENED AREAS TO RIGHT UPPER ARM, LEFT LOWER ARM AND BACK. DR. ROLLE NOTIFIED. PTS IV CARDIZEM DECREASED TO 2.5/MG/HR. HR 77, BP 122/70, TEMP 98.6, RESPIRATIONS 16. 2LNC INTACT. PULSE OX 95%. WILL CONTINUE TO MONITOR.
[2018-03-31 14:38] VITALS: BP 122/70
--- NOTE | 2018-03-31 15:13 | NUR ---
Patient unable to participate in Occupational Therapy this datew/c/o not feeling well, not eating today. Nursing reports that she has a rash over her chest and arms of unknown origin. OTR will recheck patient for ability to participate in evaluation at a later date. Rafia Blair OTR/l
--- NOTE | 2018-03-31 15:15 | NUR ---
PT TO THE FLOOR AND IS UNABLE TO AROUSE PT ENOUGH TO WORK WITH HER. VITALS REMAIN STABLE. DR. ROLLE NOTIFIED.
--- NOTE | 2018-03-31 15:32 | NUR ---
PHYSICAL THERAPY PAtient unable to participate this date x 2 attempts due to significantly drowsey and ill. Nurse educated and aware. Thank you for this referral. Jenna Parker,PT
[2018-03-31 15:55] LABS: ABG BASE EXCESS -1.3 mmol/L (-2.0-2.0); ABG HCO3 22.5 mmol/l (22-26); ABG O2 SATURATION 93.3 % (95-97); ARTERIAL BLOOD GAS PCO2 36.8 mmHg (35-45); ARTERIAL BLOOD GAS PH 7.404 (7.35-7.45)
[2018-03-31 16:00] VITALS: BP 148/88
[2018-03-31 20:00] VITALS: BP 118/70; BP 129/58
--- NOTE | 2018-03-31 20:00 | NUR ---
CARDIZEM DRIP STOPPED AT THIS TIME PER PT'S HR 60-70'S. WILL MONITOR PT RESPONSE.
--- NOTE | 2018-03-31 22:30 | NUR ---
PT DROWSY, ABLE TO TAKE PM MEDICATIONS. DR SHANKAR MADE AWARE. HR CONTINUES IN 60-70'S. BED IN LOWEST, LOCKED POS, CALL LIGHT IN REACH.
[2018-04-01 02:00] VITALS: BP 134/72
[2018-04-01 06:59] LABS: BASO % 0.1 % (0.0-1.0); EOS # 0.2 10*3/uL (0.0-0.4); EOS % 3.3 % (1.0-4.0); HEMATOCRIT 34.6 % (37.0-47.0); HEMOGLOBIN 10.6 g/dl (12.0-16.0); LYMPH # 0.5 10*3/uL (1.3-4.4); LYMPH % 6.8 % (27.0-41.0); MEAN CELL VOLUME 103.6 fl (81.0-99.0); MEAN CORPUSCULAR HGB 31.7 pg (27.0-31.0); MEAN CORPUSCULAR HGB CONC 30.6 g/dl (33.0-37.0); MEAN PLATELET VOLUME 10.2 fl (9.6-12.3); MONO # 0.3 10*3/uL (0.1-1.0); MONO % 4.9 % (3.0-9.0); NEUT # 5.8 10*3/uL (2.3-7.9); NEUT % 84.5 % (47.0-73.0); PLATELET COUNT AUTOMATED 146 10*3/uL (130-400); RED BLOOD COUNT 3.34 10*6/uL (4.10-5.10); RED CELL DISTRI WIDTH 13.7 % (0-14.5); WHITE BLOOD COUNT 6.9 10*3/uL (4.8-10.8)
[2018-04-01 07:16] LABS: BUN 13 mg/dl (7-24); CHLORIDE 111 mmol/L (98-107); CREATININE 1.07 mg/dL (0.55-1.02); POTASSIUM 3.3 mmol/L (3.5-5.1); SODIUM 145 mmol/L (136-145)
[2018-04-01 08:00] VITALS: BP 118/70
--- NOTE | 2018-04-01 09:19 | NUR ---
DR. CASTRO WAS NOTIFIED OF PATIENTS REDDENED SKIN ON ARMS AND BACK. WILL CONTINUE TO MONITOR.
--- NOTE | 2018-04-01 11:38 | NUR ---
PT WILL RETURN HOME WITH FAMILY AND [facility] ON DISCHARGE. WILL CONTINUE TO FOLLOW.
[2018-04-01 12:00] VITALS: BP 132/86
--- NOTE | 2018-04-01 14:18 | NUR ---
REFERRAL FOR HH FAXED TO [facility].
--- NOTE | 2018-04-01 14:39 | NUR ---
Occupational Therapy evaluation completed on 5 with full eval to follow. Precautions include fall risk;bed alarm,impaired cognition,poor activity tolerance, assist with all ADLs and functional mobility. Patient is high complexity level 46227 via chart reveiw, testing and evaluation. Recommend OT per POC and SNF upon d/c to enable return home with elderly . Patient reports that she wants to return home upon d/c, but it is probable that patient will not be safe enough to return home. Thank you for this referral. Rafia Blair OTR/L
[2018-04-01 16:00] VITALS: BP 134/98
[2018-04-01 20:02] VITALS: BP 110/80
--- NOTE | 2018-04-01 20:10 | NUR ---
NOTIFIED OF PT'S SOB, PULSE OX, AND WHEEZING. ONE TIME XOPENEX ORDERS.
--- NOTE | 2018-04-01 20:53 | NUR ---
Pt found 88% on room air when assessed for one time dose of Xopenex. Applied 2L NC to bring SPO2 to 93%. Will reasses and try to wean Oxygen again.
--- NOTE | 2018-04-01 21:00 | NUR ---
XOPONEX EFFECTIVE. PT BREATHING IMPROVED. WILL CONTINUE TO MONITOR PT
[2018-04-02] VITALS: BP 98/75
[2018-04-02 06:31] LABS: BASO % 0.3 % (0.0-1.0); EOS # 0.5 10*3/uL (0.0-0.4); EOS % 6.8 % (1.0-4.0); HEMATOCRIT 35.2 % (37.0-47.0); HEMOGLOBIN 11.1 g/dl (12.0-16.0); LYMPH # 0.8 10*3/uL (1.3-4.4); LYMPH % 12.2 % (27.0-41.0); MEAN CELL VOLUME 102.3 fl (81.0-99.0); MEAN CORPUSCULAR HGB 32.3 pg (27.0-31.0); MEAN CORPUSCULAR HGB CONC 31.5 g/dl (33.0-37.0); MEAN PLATELET VOLUME 10.3 fl (9.6-12.3); MONO # 0.5 10*3/uL (0.1-1.0); MONO % 6.9 % (3.0-9.0); NEUT % 73.7 % (47.0-73.0); PLATELET COUNT AUTOMATED 153 10*3/uL (130-400); RED BLOOD COUNT 3.44 10*6/uL (4.10-5.10); RED CELL DISTRI WIDTH 13.7 % (0-14.5); WHITE BLOOD COUNT 6.8 10*3/uL (4.8-10.8)
[2018-04-02 07:20] LABS: BUN 16 mg/dl (7-24); CHLORIDE 111 mmol/L (98-107); CREATININE 1.02 mg/dL (0.55-1.02); POTASSIUM 3.7 mmol/L (3.5-5.1); SODIUM 144 mmol/L (136-145)
[2018-04-02 08:00] VITALS: BP 144/84
--- NOTE | 2018-04-02 09:30 | NUR ---
PHYSICAL THERAPY PAtient evalauted on 5, full evaluation to follow. Continue with PT as per plan of care with fall, mod (A), alarms and acute debilty precautions. PAtient mildly confused and significant acute functional mobility disturbance after 2-3 days significant acute illness and in bed x 3 days. May require SNF, however; daughter acutely ill in [facility] and patient is extremely anxious to go home and see daughter- she may refuse SNF. If home, will require 24/7 family assist and home health Rn, PT, OT and aides recommended. Patient is high complexity via chart review, tests and evaluation. PAtient with foot drop left LE: patient mildly confused and unable to recall if acute or chronic. Nurse educated. Patient with compensation during gait with evaluation- maybe chronic. Thank you for this referral. Jenna Parker,PT
[2018-04-02 12:00] VITALS: BP 131/76
--- NOTE | 2018-04-02 13:05 | NUR ---
HOME O2 ASSESSMENT ROOM AIR AT REST: BP 131/86 HR 100 RR 20 SPO2 95-97% PT. TOO WEAK TO STAND OR AMBULATE TO ASSESS SPO2 DURING EXERTION. RN AND DR. TEAGUE NOTIFIED.
--- NOTE | 2018-04-02 13:27 | NUR ---
PER RESPIRATORY THERAPIST, PATIENT TOO WEAK TO STAND UP OR AMBULATE TO ASSESS FOR HOME O2.
[2018-04-02 16:00] VITALS: BP 120/86
[2018-04-02 20:00] VITALS: BP 132/114
[2018-04-02 20:45] VITALS: BP 130/80
[2018-04-03] VITALS: BP 114/59
[2018-04-03 08:00] VITALS: BP 106/58
[2018-04-03] MEDS ORDERED: IMODIUM MULTI-1 EACH PO (09:11)
[2018-04-03] MEDS ORDERED: NYSTATIN CREAM15 GM T (11:23)
[2018-04-03] MEDS ORDERED: DILTIAZEM 24HR120 MG PO (11:23)
[2018-04-03] MEDS ORDERED: DOXYCYCLINE MO100 M1 PO (11:23)
[2018-04-03 11:53] VITALS: BP 116/76
--- NOTE | 2018-04-03 13:44 | NUR ---
Discharge instructions reviewed with patient. Patient receptive and verbalizes understanding. Follow-up care arranged. Written instructions given to patient. PATIENT'S WILL BE IN LATER TO BRING HER CLOTHES AND TAKE HER HOME BY CAR. JOSH MARTINEZ
--- NOTE | 2018-04-03 15:21 | NUR ---
PATIENT'S HAS ARRIVED, PATIENT DRESSED AND READY FOR DISCHARGE.
--- NOTE | 2018-04-03 15:38 | NUR ---
PATIENT DISCHARGED TO FRONT LOBBY BY WHEELCHAIR, ACCOMPANIED BY [facility], FOR TRANSPORT HOME BY PRIVATE VEHICLE.
== END 2018-04-03 15:38 | disposition home health service (06) | DRG 871 ==
LOC: ED 18:18 → 5E 20:50 → EDHOLD 20:50 → 5E 21:12
PROVIDERS: Emergency Medicine; Family Medicine; Internal Medicine Nephrology; ADMIT Internal Medicine
DX: A41.9 Sepsis, unspecified organism (principal); J18.9 Pneumonia, unspecified organism; G93.41 Metabolic encephalopathy; E43 Unspecified severe protein-calorie malnutrition; E87.0 Hyperosmolality and hypernatremia; I13.0 Hypertensive heart and chronic kidney disease with heart failure and stage 1 through stage 4 chronic kidney disease, or unspecified chronic kidney disease; D53.9 Nutritional anemia, unspecified; E87.8 Other disorders of electrolyte and fluid balance, not elsewhere classified; R73.9 Hyperglycemia, unspecified; H10.32 Unspecified acute conjunctivitis, left eye; R53.1 Weakness; R26.2 Difficulty in walking, not elsewhere classified; I50.9 Heart failure, unspecified; K21.9 Gastro-esophageal reflux disease without esophagitis; N32.81 Overactive bladder; E78.00 Pure hypercholesterolemia, unspecified; K58.0 Irritable bowel syndrome with diarrhea; I25.10 Atherosclerotic heart disease of native coronary artery without angina pectoris; I34.0 Nonrheumatic mitral (valve) insufficiency; Z96.653 Presence of artificial knee joint, bilateral; I48.2 Chronic atrial fibrillation; F03.90 Unspecified dementia, unspecified severity, without behavioral disturbance, psychotic disturbance, mood disturbance, and anxiety; N18.3 Chronic kidney disease, stage 3 (moderate); F32.9 Major depressive disorder, single episode, unspecified; E74.39 Other disorders of intestinal carbohydrate absorption; G89.29 Other chronic pain; M54.9 Dorsalgia, unspecified; I25.2 Old myocardial infarction; Z90.49 Acquired absence of other specified parts of digestive tract; Z98.49 Cataract extraction status, unspecified eye; Z90.710 Acquired absence of both cervix and uterus; Z95.5 Presence of coronary angioplasty implant and graft; Z82.3 Family history of stroke; Z80.0 Family history of malignant neoplasm of digestive organs; Z83.3 Family history of diabetes mellitus; Z79.899 Other long term (current) drug therapy; Z68.35 Body mass index [BMI] 35.0-35.9, adult

== ENCOUNTER 2018-10-21 20:19 | Inpatient (IN) | payer OTHER ==
[~2018-10-21] VITALS: Ht 162.6 cm; Wt 90.3 kg
[2018-10-21 20:19] VITALS: BP 172/89
[~2018-10-21 20:19] MED LIST changes: +DILTIAZEM 24HR120 MG PO; +DOXYCYCLINE MO100 M1 PO; +HARD NAILS2500 MCG PO; +IMODIUM MULTI-1 EACH PO; +NYSTATIN CREAM15 GM T; +OMEGA 3 1,0001 EACH PO; +REMERON30 M1 PO; +VITAMIN B121000 MC1 PO; +VITAMIN D5000 UNIT PO; +XARELTO15 M1 PO
[2018-10-21 20:51] LABS: BILIRUBIN NEGATIVE (NEGATIVE); BLOOD 2+ (NEGATIVE); CLARITY SL CLOUDY (CLEAR); COLOR YELLOW (YELLOW); GLUCOSE NEGATIVE (NEGATIVE); KETONE NEGATIVE (NEGATIVE); LEUKO ESTERASE 3+ (NEGATIVE); NITRITE POSITIVE (NEGATIVE); PH 6.5 (5.0-9.0); SPECIFIC GRAVITY 1.015 (1.005-1.030); UROBILINOGEN 0.2 E.U./dl (0.2-1.0)
[2018-10-21 20:59] VITALS: BP 155/79
[2018-10-21 21:05] LABS: BACTERIA 2+; MUCOUS 2+; WBC TNTC wbc/hpf (0-5)
[2018-10-21 21:11] LABS: BASO % 0.2 % (0.0-1.0); EOS % 0.4 % (1.0-4.0); HEMATOCRIT 35.9 % (37.0-47.0); HEMOGLOBIN 11.4 g/dl (12.0-16.0); LYMPH # 0.8 10*3/uL (1.3-4.4); LYMPH % 7.8 % (27.0-41.0); MEAN CELL VOLUME 101.1 fl (81.0-99.0); MEAN CORPUSCULAR HGB 32.1 pg (27.0-31.0); MEAN CORPUSCULAR HGB CONC 31.8 g/dl (33.0-37.0); MEAN PLATELET VOLUME 10.1 fl (9.6-12.3); MONO # 0.6 10*3/uL (0.1-1.0); MONO % 5.3 % (3.0-9.0); NEUT # 9.1 10*3/uL (2.3-7.9); NEUT % 85.8 % (47.0-73.0); PLATELET COUNT AUTOMATED 158 10*3/uL (130-400); RED BLOOD COUNT 3.55 10*6/uL (4.10-5.10); RED CELL DISTRI WIDTH 13.3 % (0-14.5); WHITE BLOOD COUNT 10.6 10*3/uL (4.8-10.8)
[2018-10-21 21:23] LABS: ACT PARTIAL THROMBO TIME 26.3 SECONDS (20.0-32.1)
[2018-10-21 21:26] LABS: ALBUMIN 3.2 gm/dl (3.1-4.5); ALKALINE PHOSPHATASE 83 U/L (45-117); BUN 27 mg/dl (7-24); CHLORIDE 108 mmol/L (98-107); CREATININE 1.56 mg/dL (0.55-1.02); LIPASE 102 U/L (73-393); POTASSIUM 3.3 mmol/L (3.5-5.1); SGOT/AST 16 IU/L (3-35); SGPT/ALT 17 U/L (12-78); SODIUM 143 mmol/L (136-145); TOTAL PROTEIN 7.1 gm/dL (6.4-8.2)
[2018-10-21 21:28] VITALS: BP 145/94
[2018-10-21 21:29] LABS: TROPONIN I < 0.015 ng/ml (<0.045)
[2018-10-21 22:00] VITALS: BP 145/85
[2018-10-21 22:36] VITALS: BP 115/80
--- NOTE | 2018-10-21 23:10 | NUR ---
Patient taken to Xray by tech. Inpatient nurse aware.
[2018-10-21 23:25] VITALS: BP 137/81
--- NOTE | 2018-10-21 23:25 | NUR ---
A 78, admitted to 5E, under the services of ARNULFO Forbes DO with a diagnosis of UTI; SEPSIS; ACUTE KIDNEY INJURY; ALTERED MENTAL STATUS. Chief complaint is UTI; FELL AT HOME; CONFUSED TODAY. Patient arrived via stretcher from ER. Monitor applied. Initial assessment completed. Vital signs taken and recorded. ARNULFO FORBES DO notified of admission to the unit. Orders received. See assessment for past medical history, medications and allergies. Patient and/or family oriented to unit. [facility] visitation policy reviewed. Clothing/patient valuable form completed. EARNEST SMALLWOOD
[2018-10-21] MEDS ORDERED: Zestril,Prinivi40 MG PO (23:36)
[2018-10-22] VITALS: BP 143/73
--- NOTE | 2018-10-22 00:30 | NUR ---
TOOK PO MEDICATIONS WITHOUT DIFFICULTY WITH SIPS OF WATER.
--- NOTE | 2018-10-22 01:30 | NUR ---
ORDERED RECEIVED FROM [facility] FOR NYSTATIN TO EXCORATED AREAS.
--- NOTE | 2018-10-22 03:50 | NUR ---
TAKEN DOWN FOR CT SCAN.
[2018-10-22 06:37] LABS: ALBUMIN 2.7 gm/dl (3.1-4.5); CREATININE 1.3 mg/dL (0.55-1.02); PHOSPHOROUS 3.7 mg/dL (2.5-4.9); POTASSIUM 3.6 mmol/L (3.5-5.1); TOTAL PROTEIN 6.2 gm/dL (6.4-8.2)
[2018-10-22 06:44] LABS: THYROID STIM HORMONE (HS) 1.21 uIU/ml (0.358-4.75)
[2018-10-22 06:49] LABS: BASO % 0.3 % (0.0-1.0); EOS % 0.3 % (1.0-4.0); HEMATOCRIT 31.5 % (37.0-47.0); LYMPH % 13.9 % (27.0-41.0); MEAN CELL VOLUME 101.6 fl (81.0-99.0); MEAN CORPUSCULAR HGB 32.3 pg (27.0-31.0); MEAN CORPUSCULAR HGB CONC 31.7 g/dl (33.0-37.0); MEAN PLATELET VOLUME 10.6 fl (9.6-12.3); MONO # 0.3 10*3/uL (0.1-1.0); MONO % 4.5 % (3.0-9.0); NEUT # 5.9 10*3/uL (2.3-7.9); NEUT % 80.9 % (47.0-73.0); PLATELET COUNT AUTOMATED 130 10*3/uL (130-400); RED CELL DISTRI WIDTH 13.7 % (0-14.5); WHITE BLOOD COUNT 7.3 10*3/uL (4.8-10.8)
[2018-10-22 08:03] LABS: VITAMIN D, 25-HYDROXY 43.2 ng/mL (30-100)
--- NOTE | 2018-10-22 08:52 | NUR ---
PT MEDICATED WITH TYLENOL FOR C/O HEADACHE PAIN.
--- NOTE | 2018-10-22 09:06 | NUR ---
BILATERAL HEEL PROTECTORS PLACED ON PT SHE DOES NOT REPOSITION HER FEET OFF BED.
--- NOTE | 2018-10-22 10:54 | NUR ---
Skin assessed. no wounds to buttocks/coccyx but skin is red but blanches. Dr. Elise in to see pt and i made him aware that not only pt's buttocks is red but redness to skin in general including back, arms, legs. Dr elise stated to watch it for now.
--- NOTE | 2018-10-22 11:00 | NUR ---
PHYSICAL THERAPY PT EVAL COMPLETED ON LEVEL 5: FULL EVAL TO FOLLOW; RECOMMEND SKILLED PT WHILE HERE TO ADDRESS DECREASED STRENGTH, ENDURANCE AND BALANCE WELL DECREASED FUNCTIONAL MOIBLITY. PT EVAL IS MODERATE COMPLEXITY: [id number]. D/C REC: SNF BASED ON EVALUATION IF SHE MEETS CRITERIA AND IF NOT HOME [facility]. THANK YOU FOR REFERRAL DIANDRA GRAVES PT
[2018-10-22 12:00] VITALS: BP 116/81
[2018-10-22 16:00] VITALS: BP 122/78
[2018-10-22 20:00] VITALS: BP 137/88
--- NOTE | 2018-10-22 20:10 | NUR ---
RESTING IN BED WATCHING T.V. STATES THAT SHE COULD NOT EAT HER DINNER AT THIS TIME; TOOK PT'S DINNER & PUT IN THE FRIDGE. PT. VOICES NO C/O AT THIS TIME. PT. VOICES NO C/O AT THIS TIME. CALL LIGHT WITHIN REACH. BED ALARM INTACT.
--- NOTE | 2018-10-22 22:00 | NUR ---
TOOK PO MEDICATION WITHOUT DIFFICULTY. VOICES NO C/O AT THIS TIME. BED IN LOW LOCKED POSITION & CALL LIGHT WITHIN REACH. BED ALARM INTACT.
[2018-10-23] VITALS: BP 118/73
[2018-10-23 06:23] LABS: BASO % 0.3 % (0.0-1.0); EOS # 0.4 10*3/uL (0.0-0.4); EOS % 3.1 % (1.0-4.0); HEMOGLOBIN 11.5 g/dl (12.0-16.0); LYMPH # 0.7 10*3/uL (1.3-4.4); LYMPH % 5.6 % (27.0-41.0); MEAN CELL VOLUME 103.5 fl (81.0-99.0); MEAN CORPUSCULAR HGB 31.3 pg (27.0-31.0); MEAN CORPUSCULAR HGB CONC 30.3 g/dl (33.0-37.0); MEAN PLATELET VOLUME 10.6 fl (9.6-12.3); MONO # 0.4 10*3/uL (0.1-1.0); NEUT # 10.5 10*3/uL (2.3-7.9); NEUT % 87.7 % (47.0-73.0); PLATELET COUNT AUTOMATED 142 10*3/uL (130-400); RED BLOOD COUNT 3.67 10*6/uL (4.10-5.10); RED CELL DISTRI WIDTH 13.9 % (0-14.5)
[2018-10-23 06:52] LABS: CREATININE 1.39 mg/dL (0.55-1.02); POTASSIUM 3.4 mmol/L (3.5-5.1)
[2018-10-23 12:00] VITALS: BP 90/44
[2018-10-23 16:00] VITALS: BP 149/72
[2018-10-23 20:00] VITALS: BP 108/70
--- NOTE | 2018-10-23 20:00 | NUR ---
PATIENT VOICED NO COMPLAINTS AT THIS TIME. NO DISTRESS NOTED, RESP ARE ERND ON 2L NC FOR COMFORT. CALL LIGHT LIGHT LEFT WITHIN REACH.
[2018-10-24] VITALS: BP 117/66
--- NOTE | 2018-10-24 01:00 | NUR ---
PATIENT RESTING QUIETLY IN BED, EYES CLOSED. NO DISTRESS NOTED. CALL LIGHT WITHIN REACH
[2018-10-24 06:37] LABS: BASO % 0.2 % (0.0-1.0); EOS # 0.4 10*3/uL (0.0-0.4); EOS % 4.3 % (1.0-4.0); HEMATOCRIT 36.8 % (37.0-47.0); HEMOGLOBIN 11.3 g/dl (12.0-16.0); LYMPH # 0.7 10*3/uL (1.3-4.4); LYMPH % 6.9 % (27.0-41.0); MEAN CELL VOLUME 103.7 fl (81.0-99.0); MEAN CORPUSCULAR HGB 31.8 pg (27.0-31.0); MEAN CORPUSCULAR HGB CONC 30.7 g/dl (33.0-37.0); MEAN PLATELET VOLUME 10.8 fl (9.6-12.3); MONO # 0.4 10*3/uL (0.1-1.0); NEUT # 8.6 10*3/uL (2.3-7.9); NEUT % 84.3 % (47.0-73.0); PLATELET COUNT AUTOMATED 138 10*3/uL (130-400); RED BLOOD COUNT 3.55 10*6/uL (4.10-5.10); RED CELL DISTRI WIDTH 13.8 % (0-14.5); WHITE BLOOD COUNT 10.2 10*3/uL (4.8-10.8)
[2018-10-24 07:45] LABS: ALBUMIN 2.9 gm/dl (3.1-4.5); CREATININE 1.4 mg/dL (0.55-1.02); POTASSIUM 3.6 mmol/L (3.5-5.1); TOTAL PROTEIN 6.2 gm/dL (6.4-8.2)
[2018-10-24 08:00] VITALS: BP 110/70
--- NOTE | 2018-10-24 08:33 | NUR ---
NOTIFIED DR. SEGURA OF TEMP OF 100.3 AXILLARY W/ A HEART RATE IN THE 120S. TYLENOL 650 MG AND LOPRESSOR 25 MG GIVEN. ORAL INTAKE ENCOURAGED. TEMP 99.7 AN HOUR AFTER TYLENOL. DR. SEGURA STATED SHE WILL BE UP TO ASSESS PATIENT.
--- NOTE | 2018-10-24 09:01 | NUR ---
PHYSICAL THERAPY Patient presented to therapy in supine in bed and she says she would like for therapy to come back later in the morning because she is sleeping right now. Will check back on patient later in the morning. FRANSICO HAMMER LABORER/KEY MAN
--- NOTE | 2018-10-24 09:36 | NUR ---
PHYSICAL THERAPY Patient was approached for therapy a 2 nd time and was eating breakfast. The nurse said her heart rate has been up and she is running a fever. Will check back later. FRANSICO HAMMER ACCOUNTING INTERN
--- NOTE | 2018-10-24 10:00 | NUR ---
Occupational therapy orders received and chart reviewed this date, 09/23/18. Patient with nursing this morning upon OTR arrival. Will follow up with patient in the afternoon. Thank you for the referral. Maile Narvaez OTR/L
--- NOTE | 2018-10-24 10:29 | NUR ---
PHYSICAL THERAPY Patient still not feeling well with fever and higher pulse rate. When approached for therapy this 3 rd time she declined due to NOT feeling well and being very tired. Will check back with her this afternoon. FRANSICO HAMMER BRIDGE IRONWORKER
--- NOTE | 2018-10-24 11:51 | NUR ---
NOTIFIED DR. SEGURA OF PATIENT'S MANUAL BLOOD PRESSURE OF 90/42. NO NEW ORDERS AT THIS TIME.
[2018-10-24 12:00] VITALS: BP 90/42
--- NOTE | 2018-10-24 13:52 | NUR ---
24 HR chart check completed.
[2018-10-24 16:00] VITALS: BP 108/59
--- NOTE | 2018-10-24 18:07 | NUR ---
DR. GANDHI NOTIFIED OF RECTAL TEMP OF 102.3, TREMBLING, AND FEELING HOT.
[2018-10-24 18:09] VITALS: BP 120/70
--- NOTE | 2018-10-24 18:30 | NUR ---
NOTIFIED DR. GANDHI THAT PATIENT HAD A BLADDER SCAN OF >400 ML. ORDER OBTAINED TO STRAIGHT CATH PATIENT ONCE.
--- NOTE | 2018-10-24 19:51 | NUR ---
patient resting in bed watching tv. denies needs, pain, or chills at this time. rectal temp 100.1. bed alarm on, bed in low position, call light in reach
[2018-10-24 20:00] VITALS: BP 116/79
--- NOTE | 2018-10-24 20:01 | NUR ---
SPOKE WITH DR SHANKAR REGARDING TEMP AND HEART RATE. STATES TO GIVE LOPRESSOR NOW AND TURN COOLING BLANKET DOWN. WILL CONTINUE TO MONITOR
--- NOTE | 2018-10-24 20:34 | NUR ---
COOLING BLANKET ON MONITOR AT THIS TIME. RECTAL TEMP 99.0
[2018-10-25] VITALS (13 sets, daily range): BP systolic 80–114; BP diastolic 47–87
--- NOTE | 2018-10-25 01:02 | NUR ---
DR SHANKAR NOTIFIED OF LOW BLOOD PRESSURE
--- NOTE | 2018-10-25 02:08 | NUR ---
DR SHANKAR AWARE OF REPEAT BLOOD PRESSURE, HEART RATE, AND TEMP
--- NOTE | 2018-10-25 04:36 | NUR ---
DR SHANKAR NOTIFIED OF PATIENT'S VITALS AND DUSKY COLOR. STATES HE WILL COME TO SEE THE PATIENT.
--- NOTE | 2018-10-25 04:38 | NUR ---
PATIENT STATES SHE "HURTS ALL OVER". SKIN IS HOT TO TOUCH. RECTAL TEMP 100.5. PALE/DUSKY COLOR NOTED IN FACE. FINGERS CYANOTIC. O2 90% ON ROOM AIR. 2L NASAL CANNULA APPLIED.
--- NOTE | 2018-10-25 04:42 | NUR ---
PRN TYLENOL GIVEN FOR ELEVATED RECTAL TEMP AND C/O GENERALIZED PAIN.
--- NOTE | 2018-10-25 04:44 | NUR ---
DR SHANKAR AT BEDSIDE. ORDER TAKEN FOR 500CC BOLUS OF NORMAL SALINE NOW.
--- NOTE | 2018-10-25 05:13 | NUR ---
BLADDER SCANNED FOR <60CC. DR SHANKAR NOTIFIED
--- NOTE | 2018-10-25 05:30 | NUR ---
DR VARGAS'S ANSWERING SERVICE AWARE OF CONSULT.
[2018-10-25 05:58] LABS: BASO % 0.2 % (0.0-1.0); EOS # 0.4 10*3/uL (0.0-0.4); EOS % 4.6 % (1.0-4.0); HEMATOCRIT 30.8 % (37.0-47.0); HEMOGLOBIN 9.6 g/dl (12.0-16.0); LYMPH # 0.4 10*3/uL (1.3-4.4); MEAN CELL VOLUME 103.7 fl (81.0-99.0); MEAN CORPUSCULAR HGB 32.3 pg (27.0-31.0); MEAN CORPUSCULAR HGB CONC 31.2 g/dl (33.0-37.0); MEAN PLATELET VOLUME 10.6 fl (9.6-12.3); MONO # 0.5 10*3/uL (0.1-1.0); MONO % 4.9 % (3.0-9.0); NEUT # 8.2 10*3/uL (2.3-7.9); NEUT % 85.7 % (47.0-73.0); PLATELET COUNT AUTOMATED 129 10*3/uL (130-400); RED BLOOD COUNT 2.97 10*6/uL (4.10-5.10); RED CELL DISTRI WIDTH 13.8 % (0-14.5); WHITE BLOOD COUNT 9.6 10*3/uL (4.8-10.8)
--- NOTE | 2018-10-25 06:00 | NUR ---
DR SHANKAR CALLED AND SAID TO CALL CT AND LET THEM KNOW THAT PATIENT WILL NOT BE ABLE TO DRINK ORAL CONTRAST FOR CT SCAN
--- NOTE | 2018-10-25 06:04 | NUR ---
DR SHANKAR STATES TO TRANSFER PATIENT TO ICU AND GET CT OF ABDOMEN AFTER BLOOD PRESSURE STABALIZES
[2018-10-25 06:26] LABS: ALBUMIN 2.2 gm/dl (3.1-4.5); CREATININE 1.37 mg/dL (0.55-1.02); TOTAL PROTEIN 5.6 gm/dL (6.4-8.2)
--- NOTE | 2018-10-25 06:33 | NUR ---
ATTEMPTED TO CALL DAUGHTER, LISA, TO NOTIFY OF PATIENT TRANSFER TO ICU. NO ANSWER
--- NOTE | 2018-10-25 06:35 | NUR ---
YOLANDA IN CT NOTIFIED THAT PATIENT WILL NOT BE GETTING CT SCAN DONE UNTIL BLOOD PRESSURE STABALIZES
--- NOTE | 2018-10-25 06:35 | NUR ---
RECEIVED FROM 5E VIA BED FOR HYPOTENTION. BP ON ARRIVAL 102/56. IV TO RT ARM REMOVED AFTER TENDER, RED & NO BLOOD RETURN. 2 NEW IV'S STARTED IN RT ARM PER POLICY. PT AWAKE & FOLLOWING COMMANDS. PT DENIES ANY C/O ABD PAIN/NAUSEA.
--- NOTE | 2018-10-25 07:07 | NUR ---
DR ARTHUR AWARE OF CONSULT & HE WILL SEE HER THIS AM
--- NOTE | 2018-10-25 07:34 | NUR ---
LISA LOVE [id number] Please refer to the physician's history and physical for past medical history, comorbid conditions, and allergies. Diagnosis: UTI, SEPSIS, AC KIDNEY INJURY, ALTERED MENTAL STAT Amarjit Score: 15,AT RISK WOUND DESCRIPTIONS: Wound Number 1: Coccyx is red and blanchable at time of assessment. No open areas noted at time of assessment. No drainage noted at time of assessment. Musty odor noted at time of assessment. Wound Number 2: Left breast has red satelitte areas noted at time of assessment. No drainage noted at time of assessment. Musty odor noted at time of assessment. Wound Number 3: Right breast has red satelitte areas noted at time of assessment. No drainage noted at time of assessment. Musty odor noted at time of assessment. Wound Number 4: Abdominal folds have red satelitte areas noted at time of assessment. No drainage noted at time of assessment. Musty odor noted at time of assessment. Wound Number 5: Bilateral groin have red satelitte areas noted at time of assessment. No drainage noted at time of assessment. Musty odor noted at time of assessment. Wound Number: 6 Location of the wound: right lower abdomen Type of wound: full Size: 0.6cm x 1.2cm x <0.1cm Tunneling: none Undermining: none Sinus Tract: none Presence of Exudate: none Amount: None Color: Brown, red Odor: None Periwound Skin Appearance: Normal Wound edges: approximated Pain (associated with wound): none at time of assessment How does patient state this happened? pt unable to state how this happened Bilateral heels and bilateral knees are red and blanchable at time of assessment. No open areas noted at time of assessment. Surface the patient is resting on: Position Pro SKIN PREVENTION RECOMMENDATION: 1. Pressure redistribution support surface as appropriate 2. Elevate heels 3. Remove boots/TEDS every shift and reapply 4. Head of bed 30 degrees as tolerated 5. Assess nutrition and hydration 6. Manage moisture 7. Avoid the use of containment devices while in bed 8. Use absorptive products on surfaces limit layers of linens on bed 9. Turn and reposition every 1-2 hours in bed and every 1 hour in chair as tolerated 10. Weight shifts every 15 minutes while up in chair 11. Offloading with pillows or device to keep heels elevated off bed 12. Monitor skin at least every shift 13. Inspect under medical devices twice a day WOUND TREATMENT RECOMMENDATIONS: Wheelchair cushion when oob. Heel raiser pro boots while in bed to bilateral feet. Cleanse coccyx with soap and water and apply hydraguard every shift and prn for soiling. Continue nystatin powder every 12 hours to left breast, right breast, abdominal folds and bilateral groins. Full thickness guidelines: Cleanse right lower abdomen with nss and apply sureprep around the wound therahoney to wound bed and cover with optifoam gentle daily and prn for soiling.
--- NOTE | 2018-10-25 09:00 | NUR ---
Die Cast Engineer in to talk to patient. Patient states lives at home with . There are few steps in the home. Physician: angela castaneda [facility] [place] health services: none Patient's level of ADLs: MINIMAL ASSIST Patient has working utilities: all working DME: cane and walker Follow-up physician's appointment after d/c: will be made by hospitalist nurse director upon discharge Does patient want to access PORTAL?: no Discharge plan discussed with patient, she lives at home with , she uses a cane or walker for ambulation, states she is independent in adls, patient states she will be returning home when able, case management will follow. JACQUE WINSTON
--- NOTE | 2018-10-25 10:43 | NUR ---
Dr. Vargas notified of wound care recommendations.
--- NOTE | 2018-10-25 11:35 | NUR ---
Dr. Gardiner in to [facility]. To CT w/ RN escort. returned to room stable.
--- NOTE | 2018-10-25 13:36 | NUR ---
Occupational Therapy referral received 10/21/18. Patient transferred to ICCU d/t medical decline. If OT evaluation indicated, consider re-order when patient is medically stable. Thank you. Kellie Blair OTR/L
--- NOTE | 2018-10-25 16:08 | NUR ---
Dr. beltran was notified of tachycardia and hypotension, recommendation was recieved to give Lopressor as ordered.
--- NOTE | 2018-10-25 20:00 | NUR ---
PATIENT DENIES ANY NEEDS AT THIS TIME, JUST STATES THAT SHE WANTS TO GO HOME. EXPLAINED THAT SHE NEEDED ANTIBIOTICS. PATIENT VERY FLAT, NO OTHER CONCERNS AT THIS TIME. PATIENT LEFT WITH CALL LIGHT IN REACH.
--- NOTE | 2018-10-25 21:35 | NUR ---
24 HR chart check completed.
[2018-10-26] VITALS: BP 105/52
[2018-10-26 04:00] VITALS: BP 100/53
[2018-10-26 05:00] LABS: BASO % 0.3 % (0.0-1.0); EOS # 0.6 10*3/uL (0.0-0.4); EOS % 6.5 % (1.0-4.0); HEMATOCRIT 30.9 % (37.0-47.0); HEMOGLOBIN 9.5 g/dl (12.0-16.0); LYMPH # 0.7 10*3/uL (1.3-4.4); MEAN CELL VOLUME 103.7 fl (81.0-99.0); MEAN CORPUSCULAR HGB 31.9 pg (27.0-31.0); MEAN CORPUSCULAR HGB CONC 30.7 g/dl (33.0-37.0); MEAN PLATELET VOLUME 10.3 fl (9.6-12.3); MONO # 0.6 10*3/uL (0.1-1.0); MONO % 6.7 % (3.0-9.0); NEUT # 7.2 10*3/uL (2.3-7.9); NEUT % 78.2 % (47.0-73.0); PLATELET COUNT AUTOMATED 151 10*3/uL (130-400); RED BLOOD COUNT 2.98 10*6/uL (4.10-5.10); RED CELL DISTRI WIDTH 13.8 % (0-14.5); WHITE BLOOD COUNT 9.3 10*3/uL (4.8-10.8)
[2018-10-26 05:06] LABS: HEPATITIS B SURFACE AG Negative (Negative); HEPATITIS C VIRUS ANTIBODY <0.1 s/co (0.0-0.9)
[2018-10-26 05:29] LABS: ALBUMIN 2.3 gm/dl (3.1-4.5); CREATININE 1.37 mg/dL (0.55-1.02); POTASSIUM 3.4 mmol/L (3.5-5.1); TOTAL PROTEIN 5.9 gm/dL (6.4-8.2)
[2018-10-26 08:00] VITALS: BP 91/64
--- NOTE | 2018-10-26 09:00 | NUR ---
case management visits with patient, discussed with her physical therapy's recommendation of a short term fpc for rehab prior to returning home, patient wasn't sure she wanted to do this, stated she could have VNA at home, educated her that VNA is only 3 days a week and they aren't a 24 hour services, in a skilled facility she would have 24 hour care and 5 days of PT and OT services then she could return home and have VNA. she stated she would think about a SNF, case management and landscape architect and planner will follow
--- NOTE | 2018-10-26 11:39 | NUR ---
Upon discharge recommend patient to follow up for wound care in outpatient setting continue current wound care orders at discharging facility.
[2018-10-26 12:00] VITALS: BP 101/63
--- NOTE | 2018-10-26 12:26 | NUR ---
PATIENT C/O PAIN IN "TAILBONE". MEDICATED WITH NORCO PER PRN ORDER. WILL CONTINUE TO MONITOR.
--- NOTE | 2018-10-26 13:25 | NUR ---
PHYSICAL THERAPY Physical therapy evaluation complete,[facility]. Moderate complexity PT evaluation (63291) per chart review and evaluation. PT to progress with gait, transfers, and LE strength per POC. Recommend SNF at discharge. Thank you. Iram Angela,PT,DPT.
--- NOTE | 2018-10-26 14:00 | NUR ---
PATIENT RESTING QUIETLY. NOROC EFFECTIVE. WILL CONTINUE TO MONITOR.
--- NOTE | 2018-10-26 14:08 | NUR ---
Occupational therapy evaluation completed in full in the ICCU, will full evaluation and POC to follow. Patient precautions include fall risk, wheeled walker use, IV lines, and heart monitor. Per OT evaluation and POC, OTR recommend SNF with OT/PT services. If denied, recommend home with home health SN, OT, PT with 24/7 supervision. Patient would benefit from continued OT treatment to maximize independence in ADLs, functional mobility/transfers, safety, and strength. Thank you for the referral. Maile Narvaez, OTR/L
[2018-10-26 16:00] VITALS: BP 136/68
[2018-10-26 20:00] VITALS: BP 119/76
[2018-10-27] VITALS: BP 127/80
--- NOTE | 2018-10-27 01:54 | NUR ---
24 HR chart check completed.
[2018-10-27 06:32] LABS: BASO % 0.3 % (0.0-1.0); EOS # 0.7 10*3/uL (0.0-0.4); EOS % 6.9 % (1.0-4.0); HEMATOCRIT 32.2 % (37.0-47.0); HEMOGLOBIN 9.8 g/dl (12.0-16.0); LYMPH # 0.8 10*3/uL (1.3-4.4); LYMPH % 8.2 % (27.0-41.0); MEAN CELL VOLUME 103.5 fl (81.0-99.0); MEAN CORPUSCULAR HGB 31.5 pg (27.0-31.0); MEAN CORPUSCULAR HGB CONC 30.4 g/dl (33.0-37.0); MEAN PLATELET VOLUME 11.2 fl (9.6-12.3); MONO # 0.6 10*3/uL (0.1-1.0); MONO % 6.3 % (3.0-9.0); NEUT # 7.3 10*3/uL (2.3-7.9); NEUT % 77.9 % (47.0-73.0); PLATELET COUNT AUTOMATED 184 10*3/uL (130-400); RED BLOOD COUNT 3.11 10*6/uL (4.10-5.10); RED CELL DISTRI WIDTH 13.7 % (0-14.5); WHITE BLOOD COUNT 9.4 10*3/uL (4.8-10.8)
[2018-10-27 06:41] LABS: ALBUMIN 2.4 gm/dl (3.1-4.5); POTASSIUM 3.6 mmol/L (3.5-5.1)
[2018-10-27 06:45] LABS: CREATININE 1.44 mg/dL (0.55-1.02); TOTAL PROTEIN 6.3 gm/dL (6.4-8.2)
--- NOTE | 2018-10-27 07:37 | NUR ---
Patient clinicals faxed to [facility] for referral. Waiting on review/acceptance.
[2018-10-27 08:00] VITALS: BP 132/68
--- NOTE | 2018-10-27 09:00 | NUR ---
case management visits with patient, again discussed with her rehabs recommendation for her to go to a short term alf for rehab prior to going home, she has been referred to [facility] due to them accepting patient's insurance. patient admentally declined a SNF, educated her that she could receive 5 days of therapy as compared to 3 days with home health, patient closed her eyes and would not talk anymore with case management
--- NOTE | 2018-10-27 10:05 | NUR ---
OT NOTE Pt was seen this A.M. 1:1 for 20 minute OT session. Upon arrival pt was supine in bed. Pt identified by name and and had no complaints at this time. Pt transferred supine to sit EOB with modA X 2. While sitting EOB challenged pt's static sitting balance needed for increased I and enhanced safety, pt was able to maintain P+ sitting balance requiring modA to correct retrograde LOB. Sit to stand completed from bed level with modA X 2 and use of w/w for UE support. Challenged pt's static standing tolerance needed for increased I in self care tasks and functional transfers, pt was able to tolerate aprox 60 seconds at a time while requiring modA X 2 to maintain upright posture due to retrograde posture. Pt then completed sit to stand from bed level with modA X 2 followed by stand pivot from EOB to the bedside commode with modA X 2 and modA for walker navigation. Stand pivot then completed from bedside commode to the recliner with modA X 2. There she was left with call light in hand, tray table in place, and body alarm on for safety. Continue with rec D/C plan to SNF. MIKAELA Salinas/Emily
--- NOTE | 2018-10-27 10:41 | NUR ---
PHYSICAL THERAPY Patient presented to therapy in supine with head of bed elevated and bed alarm activated. Patient was identified by name and on wristband. Patient gives informed consent for treatment. Patient performed supine to sitting at EOB transfer with MOD A X 2. Patient sat on EOB with fair - balance. Patient sit to stand from EOB with MOD A X 2. Patient transferred SPT to bed side chair with MOD A X 2. Patient required verbal cues for upright posture, pushing down on walker with hands and putting wt. through BALLS OF FEET. Patient became retropulsion back onto heels and required MOD A X 1 to correct to upright posture. Patient LOB to rear occurred x 4 while standing at bedside at Walker. Patient TRANSFERRED INTO BED SIDE CHAIR with MOD A X 2 and she would not let go of the walker when she sat in chair. Patient was left in bed side chair with call light within reach, chair alarm activated and attached and tray zayda table near patient. Patient cannot ambulate at this time any more than a few feet distance. Patient was 1:1 with this TELEPHONE ADVICE NURSE for 16 minutes total. FRANSICO HAMMER TELEPHONE ADVICE NURSE
[2018-10-27] MEDS ORDERED: LEVAQUIN500 M2 PO (11:11)
[2018-10-27] MEDS ORDERED: METOPROLOL TART50 M1 PO (11:11)
--- NOTE | 2018-10-27 12:07 | NUR ---
PATIENT TO BE DISCHARGED TO HOME. CALLED AND LEFT A MESSAGE ON ANSWERING MACHINE.
--- NOTE | 2018-10-27 13:18 | NUR ---
PATIENT HERE TO TAKE PATIENT HOWEVER PATIENT CANNOT GET IN TRUCK, PATIENT BROUGHT BACK TO ROOM IN AND IS GOING HOME TO GET CAR.
--- NOTE | 2018-10-27 13:20 | NUR ---
DR. GANDHI AWARE OF PATIENT BEING WEAK BUT REFUSED SNF OR PHYSICAL THERAPY, PATIENT WANTS TO GO HOME.
--- NOTE | 2018-10-27 13:44 | NUR ---
ENVELOPE STAMPING MACHINE OPERATOR met with the patient, patient spouse, RN, and Enrollment Advisor. Patients is upset the patient is being discharged home. ENVELOPE STAMPING MACHINE OPERATOR explained the patient has adamantly refused SNF from several different hospital departments. PRANAY and Enrollment Advisor explained that we are not able to force a patient into a facility. ENVELOPE STAMPING MACHINE OPERATOR asked the patient again if she would like to go to a SNF and she stated "No I want to go home". The stated he would go get his vehicle and would take the patient home. -PRANAY Benton
--- NOTE | 2018-10-27 13:50 | NUR ---
DR. AMARILYS GARZA STATED TO TAKE PATIENT TO EMERGENCY ROOM.
--- NOTE | 2018-10-27 13:51 | NUR ---
PATIENT AND FAMILY STILL ARGUEING IN GIBBS, TOOL OR DIE DRAWING CHECKER AWARE.
--- NOTE | 2018-10-27 14:15 | NUR ---
NURSE RUN BOAT OPERATOR IN ROOM WITH FAMILY,PATIENT,POLYSOMNOGRAPHY TECHNICIAN,AND CASE MANAGEMENT.
--- NOTE | 2018-10-27 14:25 | NUR ---
Updated therapy notes and clinical[facility], waiting on auth;
--- NOTE | 2018-10-27 14:26 | NUR ---
PRANAY, Test Desk Trouble Locator, Director of Inpatient Services-Clemente, and RN Supervisior-Farheen spoke with the patient and patients family. Patient was agreeable to go to [facility]. Utility Manager notified of the patient being agreeable to [facility] and started the PRECERT process. Director of Inpatient Services-Clemente spoke with the Doctor who agreed to retract the patients Discharge. -PRANAY Benton
--- NOTE | 2018-10-27 14:27 | NUR ---
PAITENT IS BACK IN ROOM AND DISCHARGE WILL BE REVERSED, PRECERT TO DC IN PROCESS.
--- NOTE | 2018-10-27 14:42 | NUR ---
OK TO MAKE PATIENT MEDSURG AND LEAVE IV OUT PER DR GANDHI.
--- NOTE | 2018-10-27 15:06 | NUR ---
PHYSICAL THERAPY CO-SIGN I approve of the Physical Therapy notes written above. DEYVI PORRAS PT,DPT
[2018-10-27 16:00] VITALS: BP 110/60; BP 119/46
[2018-10-27 20:00] VITALS: BP 127/85
[2018-10-28] VITALS: BP 134/91
--- NOTE | 2018-10-28 03:38 | NUR ---
24 HR chart check completed.
[2018-10-28 08:00] VITALS: BP 152/99
--- NOTE | 2018-10-28 09:05 | NUR ---
PHYSICAL THERAPY Patient seen this am 1:1 for therapy visit and was resting supine in bed upon therapist arrival. Patient reports increased stiffness B neck/upper Trap and transfers supine to sit EOB with MAX A x 2. Patient tolerated static EOB sit x several minutes, demonstrating single episode of retrograde posture. Patient then performed sit to stand transfer, Mod A with use of wh walker standing support, completing SPT to bedside chair, Min A. Patient was very cautious and needed several v/c's for safe walker / step sequence during SPT, requiring v/c for increased encouragement to complete all task. Patient voiced no new c/o's following treatment and remained in bedside chair with call light, tray table and body alarm for safety. Will continue per POC as tolerated, total treatment time 13 minutes. Damion Claudio, JUVENILE PROBATION OFFICER
--- NOTE | 2018-10-28 09:12 | NUR ---
OT NOTE Pt was seen this A.M. 1:1 for 16 minute OT session. Upon arrival pt was supine in bed. Pt identified by name and and had complaints of "severe R sided neck pain." Pt transferred supine to sit EOB with maxA X 2. While sitting EOB challenged pt's static sitting balance needed for increased I and enhanced safety, pt was able to maintain P+ sitting balance requiring modA to correct retrograde posture. Sit to stand completed from bed level with modA and use of w/w. Challenged pt's static standing tolerance needed for increased I in self care tasks and functional transfers. pt was able to tolerate aprox 45 seconds before sitting due to fatigue. Stand pivot then completed from EOB to the recliner with Tristen and use of w/w. There she was left sitting upright with call light in hand, tray table in place, and body alarm on for safety. Continue with rec D/C plan to SNF. MIKAELA Salinas/Emily
--- NOTE | 2018-10-28 12:34 | NUR ---
Patient just received auth for [facility] and is ok to go if medically stable for discharge.
--- NOTE | 2018-10-28 13:29 | NUR ---
PT MEDICATED WITH NORCO FOR C/O CHRONIC NECK PAIN.
--- NOTE | 2018-10-28 14:41 | NUR ---
NURSE TO NURSE REPORT CALLED TO GWEN AT [facility].
--- NOTE | 2018-10-28 14:43 | NUR ---
Discharge instructions reviewed with patient/family. Patient receptive and verbalizes understanding. Follow-up care arranged. Written instructions given to patient/family. ANDRES BABIN
--- NOTE | 2018-10-28 14:56 | NUR ---
[facility] HERE TO TRANSPORT PT TO [facility].
--- NOTE | 2018-10-31 09:18 | NUR ---
PHYSICAL THERAPY CO-SIGN I approve of the Physical Therapy notes written above. DEYVI PORRAS PT,DPT
--- NOTE | 2018-10-31 09:20 | NUR ---
OCCUPATIONAL THERAPY CO-SIGN I approve of the Occupational Therapy notes written above. BRITTANI [facility] OTR/Emily
== END 2018-10-28 15:00 | disposition other institution (70) | DRG 871 ==
LOC: ED 20:19 → EDHOLD 22:57 → ICCU 22:57 → 5E 23:03 → ICCU 10-25 06:17 → 4E 10-26 17:37
PROVIDERS: Emergency Medicine Emergency Medical Services; Hospitalist; Internal Medicine; Student in an Organized Health Care Education/Training Program; ADMIT Internal Medicine
DX: A41.9 Sepsis, unspecified organism (principal); G93.41 Metabolic encephalopathy; N17.0 Acute kidney failure with tubular necrosis; E44.0 Moderate protein-calorie malnutrition; D68.59 Other primary thrombophilia; I50.42 Chronic combined systolic (congestive) and diastolic (congestive) heart failure; I13.0 Hypertensive heart and chronic kidney disease with heart failure and stage 1 through stage 4 chronic kidney disease, or unspecified chronic kidney disease; J98.11 Atelectasis; E87.6 Hypokalemia; E87.8 Other disorders of electrolyte and fluid balance, not elsewhere classified; M19.90 Unspecified osteoarthritis, unspecified site; F32.9 Major depressive disorder, single episode, unspecified; I25.10 Atherosclerotic heart disease of native coronary artery without angina pectoris; G89.29 Other chronic pain; M54.9 Dorsalgia, unspecified; N18.3 Chronic kidney disease, stage 3 (moderate); R29.6 Repeated falls; K21.9 Gastro-esophageal reflux disease without esophagitis; E78.00 Pure hypercholesterolemia, unspecified; R65.20 Severe sepsis without septic shock; R73.9 Hyperglycemia, unspecified; K58.0 Irritable bowel syndrome with diarrhea; G30.9 Alzheimer's disease, unspecified; F02.80 Dementia in other diseases classified elsewhere, unspecified severity, without behavioral disturbance, psychotic disturbance, mood disturbance, and anxiety; D53.9 Nutritional anemia, unspecified; I48.2 Chronic atrial fibrillation; Z96.653 Presence of artificial knee joint, bilateral; B96.20 Unspecified Escherichia coli [E. coli] as the cause of diseases classified elsewhere; N30.91 Cystitis, unspecified with hematuria; I95.9 Hypotension, unspecified; Z79.01 Long term (current) use of anticoagulants; Z79.899 Other long term (current) drug therapy; Z87.01 Personal history of pneumonia (recurrent); I25.2 Old myocardial infarction; Z90.49 Acquired absence of other specified parts of digestive tract; Z95.5 Presence of coronary angioplasty implant and graft; Z90.710 Acquired absence of both cervix and uterus; Z90.89 Acquired absence of other organs; Z98.42 Cataract extraction status, left eye; Z98.41 Cataract extraction status, right eye; Z83.3 Family history of diabetes mellitus; Z82.3 Family history of stroke; Z80.0 Family history of malignant neoplasm of digestive organs; Z84.89 Family history of other specified conditions; Z68.34 Body mass index [BMI] 34.0-34.9, adult

== ENCOUNTER 2019-08-12 15:17 | Inpatient (IN) | payer MEDICARE ==
[~2019-08-12] VITALS: Ht 160 cm; Wt 88.9 kg
[~2019-08-12 15:17] MED LIST changes: +LEVAQUIN500 M2 PO; +METOPROLOL TART50 M1 PO; +Zestril,Prinivi40 MG PO
[2019-08-12 15:18] VITALS: BP 128/68
[2019-08-12 16:00] VITALS: BP 107/62
[2019-08-12 16:16] LABS: HEMATOCRIT 35.9 % (37.0-47.0); MEAN CELL VOLUME 106.5 fl (81.0-99.0); MEAN CORPUSCULAR HGB 33.5 pg (27.0-31.0); MEAN CORPUSCULAR HGB CONC 31.5 g/dl (33.0-37.0); MEAN PLATELET VOLUME 10.3 fl (9.6-12.3); PLATELET COUNT AUTOMATED 134 10*3/uL (130-400); RED BLOOD COUNT 3.37 10*6/uL (4.10-5.10); RED CELL DISTRI WIDTH 13.9 % (0-14.5); WHITE BLOOD COUNT 7.9 10*3/uL (4.8-10.8)
[2019-08-12 16:16] LABS: CLARITY TURBID (CLEAR); COLOR YELLOW (YELLOW)
[2019-08-12 16:17] LABS: BILIRUBIN 1+ (NEGATIVE); BLOOD 3+ (NEGATIVE); GLUCOSE NEGATIVE (NEGATIVE); KETONE NEGATIVE (NEGATIVE); LEUKO ESTERASE 3+ (NEGATIVE); NITRITE NEGATIVE (NEGATIVE); SPECIFIC GRAVITY 1.015 (1.005-1.030); UROBILINOGEN 0.2 E.U./dl (0.2-1.0)
[2019-08-12 16:28] LABS: ALBUMIN 3.4 gm/dl (3.1-4.5); CREATININE 1.75 mg/dL (0.55-1.02); POTASSIUM 4.3 mmol/L (3.5-5.1); TOTAL PROTEIN 7.4 gm/dL (6.4-8.2)
[2019-08-12 16:45] LABS: TOTAL CELLS COUNTED 100 #CELLS
[2019-08-12 16:46] LABS: PLATELET SUFFICIENCY NORMAL (NORMAL)
[2019-08-12 17:09] LABS: BACTERIA 4+; RBC TNTC rbc/hpf (0-2); WBC TNTC wbc/hpf (0-5)
--- NOTE | 2019-08-12 18:10 | NUR ---
THE PATIENT HAS EXCORIATION UNDER BILATERAL BREAST, TO THE ABDOMEN FOLDS, AND TO THE COCCYX. NO OPEN AREAS WERE NOTED. NO PIC. WERE TAKEN
[2019-08-12 18:35] VITALS: BP 107/62
--- NOTE | 2019-08-12 18:35 | NUR ---
Time: 1834 A 79 year old admitted to under services of PEPPER PARDO DO, Pt. arrived via stretcher from ER. Chief complaint: INCREASED CONFUSSION. WOJCIECH ACOSTA
[2019-08-12] MEDS ORDERED: IBU800 MG PO (19:26)
[2019-08-12] MEDS ORDERED: FUROSEMIDE40 MG PO (19:31)
[2019-08-12] MEDS ORDERED: ATIVAN0.5 MG PO (19:32)
[2019-08-12] MEDS ORDERED: KLOR-CON M2020 ME1 PO (19:33)
[2019-08-12] MEDS ORDERED: ONDANSETRON4 MG SL (19:35)
[2019-08-12 20:00] VITALS: BP 137/69
--- NOTE | 2019-08-12 20:00 | NUR ---
PT ASLEEP IN BED AT THIS TIME. RESPS ARE EASY AND NONLABORED. VITALS WNL. BED LOW, CALL LIGHT WITHIN REACH, ALARM ON. WILL CONTINUE TO MONITOR CLOSELY.
--- NOTE | 2019-08-12 23:39 | NUR ---
DR. VELIZ CALLED FOR LACTIC ACID OF 2.4, ORDERED TO BOLUS 500ML FROM IV FLUIDS RUNNING AND IV FLUIDS AT 100ML/HR.
[2019-08-13] VITALS: BP 131/81
[2019-08-13 06:09] LABS: HEMATOCRIT 36.7 % (37.0-47.0); MEAN CELL VOLUME 108.9 fl (81.0-99.0); MEAN CORPUSCULAR HGB 33.2 pg (27.0-31.0); MEAN CORPUSCULAR HGB CONC 30.5 g/dl (33.0-37.0); MEAN PLATELET VOLUME 10.9 fl (9.6-12.3); PLATELET COUNT AUTOMATED 116 10*3/uL (130-400); RED BLOOD COUNT 3.37 10*6/uL (4.10-5.10); RED CELL DISTRI WIDTH 14.1 % (0-14.5); WHITE BLOOD COUNT 5.4 10*3/uL (4.8-10.8)
[2019-08-13 06:25] LABS: ALBUMIN 2.8 gm/dl (3.1-4.5); CREATININE 1.53 mg/dL (0.55-1.02); POTASSIUM 4.6 mmol/L (3.5-5.1); TOTAL PROTEIN 6.5 gm/dL (6.4-8.2)
[2019-08-13 06:31] LABS: THYROID STIM HORMONE (HS) 1.14 uIU/ml (0.358-4.75)
[2019-08-13 06:57] LABS: PLATELET SUFFICIENCY LOW (NORMAL); TOTAL CELLS COUNTED 100 #CELLS
--- NOTE | 2019-08-13 07:27 | NUR ---
ARRIVED ON SHIFT, REPORT RECEIVED FROM OFFGOING NURSE, ASSUMED CARE OF PATIENT.
--- NOTE | 2019-08-13 07:28 | NUR ---
Shift chart check completed.
--- NOTE | 2019-08-13 07:30 | NUR ---
INTRODUCED SELF TO PATIENT, BED IN LOW POSITION, WHEEL LOCKS ENGAGED, SIDE RAILS UP X 2 FOR TURNING AND REPOSITIONING, BED ALARM ON, CALL LIGHT WITHIN REACH, NO NEEDS VOICED AT THIS TIME. WHITE BOARD UPDATED.
[2019-08-13 08:00] VITALS: BP 124/93
[2019-08-13 08:06] LABS: VITAMIN D, 25-HYDROXY 36.7 ng/mL (30-100)
[2019-08-13 12:00] VITALS: BP 122/76
[2019-08-13 16:00] VITALS: BP 120/78
[2019-08-13 20:00] VITALS: BP 114/83
--- NOTE | 2019-08-13 20:14 | NUR ---
PT. RESTING IN BED. IVF INFUSING ORDERED VIA RA, SITE ASYMPT. LUNGS DIMINISHED BILAT, PULSE OX 94% ON RA. ABDOMEN SOFTLY DISTENDED AND NORMO. TRACE LOWER EXTREMITY EDEMA NOTED. KNEE HIGH LOLI HOSE BILAT. RESP. EASY AND REG ,NO DISTRESS. MEÑO COLMENARES RN
[2019-08-14] VITALS: BP 135/83
--- NOTE | 2019-08-14 05:00 | NUR ---
PATIENT HAS EXCORIATED AREAS UNDER BREASTS AND ABD SKIN FOLDS. CAN WE PLEASE GET MEDICATION TO ASSIST WITH HEALING. THANK YOU,
--- NOTE | 2019-08-14 07:04 | NUR ---
ARRIVED ON SHIFT, REPORT RECEIVED FROM OFFGOING NURSE, ASSUMED CARE OF PATIENT.
--- NOTE | 2019-08-14 07:05 | NUR ---
ARRIVED ON SHIFT, REPORT RECEIVED FROM OFFGOING NURSE, WHITE BOARD UPDATED.
--- NOTE | 2019-08-14 07:11 | NUR ---
Shift chart check completed.
[2019-08-14 07:26] LABS: CREATININE 1.31 mg/dL (0.55-1.02)
[2019-08-14 08:00] VITALS: BP 137/87
--- NOTE | 2019-08-14 08:00 | NUR ---
INTRODUCED SELF TO PATIENT, BED IN LOW POSITION, WHEEL LOCKS ENGAGED, SIDE RAILS UP X TWO FOR TURNING AND REPOSITIONING, BED ALARM ON, CALL LIGHT WITHIN REACH, NO NEEDS VOICED AT THIS TIME.
--- NOTE | 2019-08-14 08:44 | NUR ---
PHYSICAL THERAPY Nursing screen received and chart reviewed. PT evaluation received. Will follow. Thank you. Iram Angela,PT,DPT
--- NOTE | 2019-08-14 08:50 | NUR ---
Nursing screen and occupational therapy evaluation received. Will follow up with patient. Thank you. Jennifer Parrish OTR/L
--- NOTE | 2019-08-14 09:14 | NUR ---
PHYSICAL THERAPY Initial eval done at bedside. See eval for details. Brief recap--needs min assist for in/out of bed transfers and min assist/use WW for limited gait of 25' with mild SOB noted. Recommend SNF for strengthening, functional training prior to dc home as has stairs, currently lives alone. Jodi Conn, PT
[2019-08-14 12:00] VITALS: BP 114/59
--- NOTE | 2019-08-14 13:37 | NUR ---
Sorter Packer in to talk to patient. Patient states lives at home with alone. There are 5 steps in the home. Physician: [facility]: [facility] Home health services: none at present Patient's level of ADLs: MINIMAL ASSIST Patient has working utilities: all working DME: walker, shower chair Follow-up physician's appointment after d/c: will be made by hospitalist nurse director upon discharge Does patient want to access PORTAL?: no Discharge plan discussed with patient and daughter ryanne Mercedes stated her mom lives at home alone with help from caregivers from [facility] 5 hours a day, 7 days a week, Ryanne stated family lives a few minutes away from patient and visit and help her throughout the day. daughter stated patient would return home when discharged. discussed with them home health services and educated on the services they provide. daughter stated patient had home health services from [facility] in the past and would like her to have nursing and physical therapy when discharged. case management will sent a referral to [facility] for when patient is discharged. JACQUE WINSTON
--- NOTE | 2019-08-14 13:55 | NUR ---
PATIENT C/O UNABLE TO MOVE BOWELS AND BACK PAIN, MEDICATED WITH TYLENOL AND DULCOLAX.
--- NOTE | 2019-08-14 14:54 | NUR ---
PATIENT RESTING QUIETLY WITH EYES CLOSED, FACIAL EXPRESSION RELAXED.
[2019-08-14 16:00] VITALS: BP 127/56
[2019-08-14 20:00] VITALS: BP 113/55
--- NOTE | 2019-08-14 23:03 | NUR ---
TYLENOL GIVEN AT 2206 ORDERED PER PT REQUEST.
--- NOTE | 2019-08-14 23:48 | NUR ---
PT. SLEEPING, TYLENOL EFFECTIVE FOR GENERAL ACHES AND PAINS. MEÑO COLMENARES RN
[2019-08-15] VITALS: BP 116/79
[2019-08-15 06:34] LABS: BASO % 0.3 % (0.0-1.0); EOS # 0.6 10*3/uL (0.0-0.4); EOS % 6.9 % (1.0-4.0); HEMATOCRIT 34.5 % (37.0-47.0); LYMPH # 0.5 10*3/uL (1.3-4.4); LYMPH % 5.5 % (27.0-41.0); MEAN CELL VOLUME 107.1 fl (81.0-99.0); MEAN CORPUSCULAR HGB 32.9 pg (27.0-31.0); MEAN CORPUSCULAR HGB CONC 30.7 g/dl (33.0-37.0); MEAN PLATELET VOLUME 10.6 fl (9.6-12.3); MONO # 0.3 10*3/uL (0.1-1.0); MONO % 3.6 % (3.0-9.0); NEUT # 7.6 10*3/uL (2.3-7.9); NEUT % 82.9 % (47.0-73.0); PLATELET COUNT AUTOMATED 112 10*3/uL (130-400); RED BLOOD COUNT 3.22 10*6/uL (4.10-5.10); RED CELL DISTRI WIDTH 13.9 % (0-14.5); WHITE BLOOD COUNT 9.2 10*3/uL (4.8-10.8)
[2019-08-15 06:48] LABS: CREATININE 1.13 mg/dL (0.55-1.02); POTASSIUM 3.6 mmol/L (3.5-5.1)
[2019-08-15 08:00] VITALS: BP 141/86
[2019-08-15 08:11] LABS: HEP B CORE AB, IGM Negative (Negative); HEPATITIS B SURFACE AG Negative (Negative); HEPATITIS C VIRUS ANTIBODY <0.1 s/co (0.0-0.9)
--- NOTE | 2019-08-15 09:00 | NUR ---
case management visits with patient, she will return home when discharged with [facility], case management will notify [facility] when patient is discharged to home
[2019-08-15] MEDS ORDERED: CEFUROXIME AXE250 MG PO (10:38)
[2019-08-15] MEDS ORDERED: NYSTOP60 GM T (10:39)
[2019-08-15 12:00] VITALS: BP 116/61
--- NOTE | 2019-08-15 13:32 | NUR ---
Discharge instructions reviewed with patient/family. Patient receptive and verbalizes understanding. Follow-up care arranged. Written instructions given to patient/family. DANIELLA BARRERA
--- NOTE | 2019-08-15 13:38 | NUR ---
case management called [facility] regarding referral for patient, spoke with Krystal, intake nurse. Krystal stated patient is still under their home health service, currently and will see her when she is discharged to home
== END 2019-08-15 13:32 | disposition home or self-care (01) | DRG 682 ==
LOC: ED 15:17 → 4E 17:01 → EDHOLD 17:01 → 4E 17:35
PROVIDERS: Hospitalist; Internal Medicine; Nurse Practitioner Family; Student in an Organized Health Care Education/Training Program; ADMIT Internal Medicine
DX: N17.9 Acute kidney failure, unspecified (principal); G93.41 Metabolic encephalopathy; N39.0 Urinary tract infection, site not specified; I50.22 Chronic systolic (congestive) heart failure; D68.59 Other primary thrombophilia; E44.1 Mild protein-calorie malnutrition; I13.0 Hypertensive heart and chronic kidney disease with heart failure and stage 1 through stage 4 chronic kidney disease, or unspecified chronic kidney disease; E87.2 Acidosis; F03.91 Unspecified dementia, unspecified severity, with behavioral disturbance; I48.20 Chronic atrial fibrillation, unspecified; R31.9 Hematuria, unspecified; R73.9 Hyperglycemia, unspecified; E87.8 Other disorders of electrolyte and fluid balance, not elsewhere classified; D53.9 Nutritional anemia, unspecified; R74.0 Nonspecific elevation of levels of transaminase and lactic acid dehydrogenase [LDH]; K21.9 Gastro-esophageal reflux disease without esophagitis; N32.81 Overactive bladder; M89.29 Other disorders of bone development and growth, multiple sites; M54.9 Dorsalgia, unspecified; J30.2 Other seasonal allergic rhinitis; I34.0 Nonrheumatic mitral (valve) insufficiency; I25.10 Atherosclerotic heart disease of native coronary artery without angina pectoris; N18.3 Chronic kidney disease, stage 3 (moderate); F32.5 Major depressive disorder, single episode, in full remission; R26.2 Difficulty in walking, not elsewhere classified; Z68.34 Body mass index [BMI] 34.0-34.9, adult; D69.6 Thrombocytopenia, unspecified; I25.2 Old myocardial infarction; Z90.49 Acquired absence of other specified parts of digestive tract; Z96.653 Presence of artificial knee joint, bilateral; Z98.49 Cataract extraction status, unspecified eye; Z82.3 Family history of stroke; Z80.0 Family history of malignant neoplasm of digestive organs; Z79.899 Other long term (current) drug therapy; Z79.01 Long term (current) use of anticoagulants

== ENCOUNTER 2019-08-22 16:10 | Inpatient (IN) | payer MEDICARE ==
[~2019-08-22] VITALS: Ht 160 cm; Wt 91.2 kg
[2019-08-22] VITALS (7 sets, daily range): BP systolic 109–148; BP diastolic 64–102
[~2019-08-22 16:10] MED LIST changes: +ATIVAN0.5 MG PO; +CEFUROXIME AXE250 MG PO; +FUROSEMIDE40 MG PO; +IBU800 MG PO; +NYSTOP60 GM T; +ONDANSETRON4 MG SL
[2019-08-22 16:46] LABS: BASO % 0.5 % (0.0-1.0); EOS # 0.1 10*3/uL (0.0-0.4); EOS % 1.3 % (1.0-4.0); LYMPH % 16.4 % (27.0-41.0); MEAN CORPUSCULAR HGB 31.9 pg (27.0-31.0); MEAN CORPUSCULAR HGB CONC 31.6 g/dl (33.0-37.0); MEAN PLATELET VOLUME 10.5 fl (9.6-12.3); MONO # 0.5 10*3/uL (0.1-1.0); MONO % 8.8 % (3.0-9.0); NEUT # 4.5 10*3/uL (2.3-7.9); NEUT % 72.8 % (47.0-73.0); PLATELET COUNT AUTOMATED 208 10*3/uL (130-400); RED BLOOD COUNT 3.07 10*6/uL (4.10-5.10); RED CELL DISTRI WIDTH 14.1 % (0-14.5); WHITE BLOOD COUNT 6.1 10*3/uL (4.8-10.8)
[2019-08-22 16:54] LABS: ACT PARTIAL THROMBO TIME 27.4 SECONDS (20.0-32.1); INTERNATIONAL NORM RATIO 1.2 (2.0-3.5)
[2019-08-22 17:00] LABS: ALBUMIN 3.2 gm/dl (3.1-4.5); ALKALINE PHOSPHATASE 109 U/L (45-117); BUN 22 mg/dl (7-24); CHLORIDE 111 mmol/L (98-107); CREATININE 1.08 mg/dL (0.55-1.02); POTASSIUM 4.5 mmol/L (3.5-5.1); SGOT/AST 18 IU/L (3-35); SGPT/ALT 34 U/L (12-78); SODIUM 143 mmol/L (136-145); TOTAL PROTEIN 7.1 gm/dL (6.4-8.2)
[2019-08-22 17:01] LABS: TROPONIN I < 0.015 ng/ml (<0.045)
[2019-08-22] MEDS ORDERED: OMEPRAZOLE40 MG PO (20:44)
[2019-08-22] MEDS ORDERED: IBU800 M1 PO (20:46)
[2019-08-23] VITALS (10 sets, daily range): BP systolic 109–156; BP diastolic 56–106
[2019-08-23 07:30] LABS: BASO % 0.6 % (0.0-1.0); EOS # 0.3 10*3/uL (0.0-0.4); EOS % 4.8 % (1.0-4.0); HEMATOCRIT 31.5 % (37.0-47.0); LYMPH # 1.2 10*3/uL (1.3-4.4); LYMPH % 22.9 % (27.0-41.0); MEAN CORPUSCULAR HGB CONC 30.2 g/dl (33.0-37.0); MEAN PLATELET VOLUME 10.5 fl (9.6-12.3); MONO # 0.6 10*3/uL (0.1-1.0); MONO % 10.6 % (3.0-9.0); NEUT # 3.2 10*3/uL (2.3-7.9); NEUT % 60.9 % (47.0-73.0); PLATELET COUNT AUTOMATED 182 10*3/uL (130-400); RED BLOOD COUNT 2.97 10*6/uL (4.10-5.10); RED CELL DISTRI WIDTH 14.4 % (0-14.5); WHITE BLOOD COUNT 5.2 10*3/uL (4.8-10.8)
[2019-08-23 07:33] LABS: MEAN CELL VOLUME 106.1 fl (81.0-99.0)
[2019-08-23 07:45] LABS: INTERNATIONAL NORM RATIO 1.1 (2.0-3.5)
[2019-08-23 07:46] LABS: CREATININE 1.26 mg/dL (0.55-1.02); POTASSIUM 4.4 mmol/L (3.5-5.1); TOTAL PROTEIN 6.7 gm/dL (6.4-8.2)
[2019-08-23 07:56] LABS: THYROID STIM HORMONE (HS) 3.4 uIU/ml (0.358-4.75)
[2019-08-24] VITALS: BP 126/74
[2019-08-24 06:26] LABS: CREATININE 1.18 mg/dL (0.55-1.02); POTASSIUM 3.9 mmol/L (3.5-5.1)
[2019-08-24 08:00] VITALS: BP 143/91
[2019-08-24 12:00] VITALS: BP 144/82
[2019-08-24 16:00] VITALS: BP 109/67
[2019-08-24 17:35] LABS: COLOR STRAW (YELLOW)
[2019-08-24 17:36] LABS: BILIRUBIN NEGATIVE (NEGATIVE); BLOOD 1+ (NEGATIVE); CLARITY CLEAR (CLEAR); GLUCOSE NEGATIVE (NEGATIVE); KETONE NEGATIVE (NEGATIVE); LEUKO ESTERASE 2+ (NEGATIVE); NITRITE NEGATIVE (NEGATIVE); SPECIFIC GRAVITY 1.015 (1.005-1.030); UROBILINOGEN 0.2 E.U./dl (0.2-1.0)
[2019-08-24 17:37] LABS: BACTERIA TRACE; WBC 51-100 wbc/hpf (0-5)
[2019-08-24 17:38] LABS: YEAST TRACE
[2019-08-24 20:00] VITALS: BP 139/87
[2019-08-25] VITALS: BP 153/91
[2019-08-25 08:13] VITALS: BP 157/70
[2019-08-25 12:00] VITALS: BP 148/84
[2019-08-25 16:00] VITALS: BP 155/73
[2019-08-25 20:00] VITALS: BP 141/89
[2019-08-26] VITALS: BP 147/84
[2019-08-26] MEDS ORDERED: METOPROLOL TART50 M1 PO (05:22)
[2019-08-26 08:00] VITALS: BP 160/92
== END 2019-08-26 10:21 | disposition home or self-care (01) | DRG 309 ==
LOC: ED 16:10 → 5E 19:27 → EDHOLD 19:27 → 5E 20:11
PROVIDERS: Emergency Medicine; Student in an Organized Health Care Education/Training Program; ADMIT Internal Medicine
DX: I48.21 Permanent atrial fibrillation (principal); R65.10 Systemic inflammatory response syndrome (SIRS) of non-infectious origin without acute organ dysfunction; D68.59 Other primary thrombophilia; E44.1 Mild protein-calorie malnutrition; N39.0 Urinary tract infection, site not specified; I13.0 Hypertensive heart and chronic kidney disease with heart failure and stage 1 through stage 4 chronic kidney disease, or unspecified chronic kidney disease; I50.9 Heart failure, unspecified; K21.9 Gastro-esophageal reflux disease without esophagitis; M45.9 Ankylosing spondylitis of unspecified sites in spine; I25.10 Atherosclerotic heart disease of native coronary artery without angina pectoris; K58.0 Irritable bowel syndrome with diarrhea; D53.9 Nutritional anemia, unspecified; N18.3 Chronic kidney disease, stage 3 (moderate); I42.9 Cardiomyopathy, unspecified; F01.50 Vascular dementia, unspecified severity, without behavioral disturbance, psychotic disturbance, mood disturbance, and anxiety; G89.29 Other chronic pain; M54.9 Dorsalgia, unspecified; B96.89 Other specified bacterial agents as the cause of diseases classified elsewhere; R62.7 Adult failure to thrive; R73.9 Hyperglycemia, unspecified; E87.8 Other disorders of electrolyte and fluid balance, not elsewhere classified; N32.81 Overactive bladder; F32.5 Major depressive disorder, single episode, in full remission; I25.2 Old myocardial infarction; Z95.5 Presence of coronary angioplasty implant and graft; Z90.710 Acquired absence of both cervix and uterus; Z90.49 Acquired absence of other specified parts of digestive tract; Z96.653 Presence of artificial knee joint, bilateral; Z80.0 Family history of malignant neoplasm of digestive organs; Z82.3 Family history of stroke; Z79.899 Other long term (current) drug therapy; Z68.30 Body mass index [BMI] 30.0-30.9, adult

== ENCOUNTER 2020-01-03 18:29 | Inpatient (IN) | payer MEDICARE ==
[~2020-01-03] VITALS: Ht 152.4 cm; Wt 72.2 kg
[2020-01-03] VITALS (7 sets, daily range): BP systolic 98–118; BP diastolic 46–67
[~2020-01-03 18:29] MED LIST changes: +IBU800 M1 PO
--- NOTE | 2020-01-03 19:10 | NUR ---
Transfer of care from [facility].
[2020-01-03 19:21] LABS: BILIRUBIN Negative (Negative); BLOOD Trace-Lysed (Negative); CLARITY Turbid (Clear); COLOR Yellow (Yellow); GLUCOSE Negative (Negative); KETONE Negative (Negative); LEUKO ESTERASE 3+ (Negative); NITRITE Negative (Negative); SPECIFIC GRAVITY 1.015 (1.001-1.030)
[2020-01-03 19:29] LABS: HEMATOCRIT 33.4 % (37.0-47.0); MEAN CELL VOLUME 102.5 fl (81.0-99.0); MEAN CORPUSCULAR HGB 32.2 pg (27.0-31.0); MEAN CORPUSCULAR HGB CONC 31.4 g/dl (33.0-37.0); MEAN PLATELET VOLUME 10.2 fl (9.6-12.3); PLATELET COUNT AUTOMATED 138 10*3/uL (130-400); RED BLOOD COUNT 3.26 10*6/uL (4.10-5.10); RED CELL DISTRI WIDTH 13.6 % (0-14.5); WHITE BLOOD COUNT 9.3 10*3/uL (4.8-10.8)
[2020-01-03 19:33] LABS: BACTERIA 3+; WBC TNTC wbc/hpf (0-5)
[2020-01-03 19:42] LABS: CREATININE 1.09 mg/dL (0.55-1.02); POTASSIUM 4.3 mmol/L (3.5-5.1); TOTAL PROTEIN 6.7 gm/dL (6.4-8.2)
[2020-01-03 19:48] LABS: TOTAL CELLS COUNTED 100 #CELLS
[2020-01-03 19:49] LABS: PLATELET SUFFICIENCY LOW (NORMAL)
--- NOTE | 2020-01-03 20:36 | NUR ---
In to see pt at this time.Pt is alert x3.Pt has diminshed lung sounds in the bases and bsx4.Pt turned at this time and no wounds noted.Butttock area red at this time but blanchable.Brief intact and dry at tbis time.Old pupil noted on chest at this time.Pt has 20 gauge lfa and 18 rfa intact with good blood return at this time.
--- NOTE | 2020-01-03 21:28 | NUR ---
Family updated on pt status.
--- NOTE | 2020-01-03 22:21 | NUR ---
Family updated on pt status at this time.
--- NOTE | 2020-01-03 22:35 | NUR ---
In to see pt at this time.Pt states she just wants to sleep and be left alone.Pt is confused and able to state name and location.Brief dry at this time and heels elevated.
[2020-01-04] VITALS (16 sets, daily range): BP systolic 105–134; BP diastolic 51–85
--- NOTE | 2020-01-04 00:03 | NUR ---
In to see pt at this time.Pt brief changed at this time and small amout of inc urine noted.Pt also turned at this time and heels elevated.Right 18 gauge iv infusing fluids per order and both iv dressings reinforced at this time.
--- NOTE | 2020-01-04 00:42 | NUR ---
Pt currently sleeping at this time.
--- NOTE | 2020-01-04 01:53 | NUR ---
Pt still sleeping at this time.
--- NOTE | 2020-01-04 02:47 | NUR ---
Pt currently sleeping at this time.
--- NOTE | 2020-01-04 04:04 | NUR ---
In to see pt at this time.Pt pulled up in the bed at this time and turned at this time.Pt given ice chips at this time.Fluids infusing at 80cc an hour at this time into 18 gauge.
--- NOTE | 2020-01-04 04:55 | NUR ---
Pt sleeping at this time.
--- NOTE | 2020-01-04 06:18 | NUR ---
In to see pt at this time.Pt turned in bed.Sheets dry at this time.Some redness noted on buttock and back but no open areas noted.Left forearm iv removed at this time and tape gauge dressing applied.
--- NOTE | 2020-01-04 07:10 | NUR ---
Transfer of care to [facility].
[2020-01-04 07:28] LABS: HEMATOCRIT 34.7 % (37.0-47.0); MEAN CELL VOLUME 103.9 fl (81.0-99.0); MEAN CORPUSCULAR HGB 32.3 pg (27.0-31.0); MEAN CORPUSCULAR HGB CONC 31.1 g/dl (33.0-37.0); MEAN PLATELET VOLUME 10.7 fl (9.6-12.3); PLATELET COUNT AUTOMATED 149 10*3/uL (130-400); RED BLOOD COUNT 3.34 10*6/uL (4.10-5.10); RED CELL DISTRI WIDTH 13.6 % (0-14.5); WHITE BLOOD COUNT 11.9 10*3/uL (4.8-10.8)
[2020-01-04 07:38] LABS: ACT PARTIAL THROMBO TIME 35.5 SECONDS (20.0-32.1); INTERNATIONAL NORM RATIO 1.2 (2.0-3.5)
[2020-01-04 07:42] LABS: ALBUMIN 2.8 gm/dl (3.1-4.5); BUN 19 mg/dl (7-24); CHLORIDE 110 mmol/L (98-107); CREATININE 0.93 mg/dL (0.55-1.02); POTASSIUM 4.5 mmol/L (3.5-5.1); SGOT/AST 14 IU/L (3-35); SGPT/ALT 10 U/L (12-78); SODIUM 141 mmol/L (136-145); TOTAL PROTEIN 6.7 gm/dL (6.4-8.2)
--- NOTE | 2020-01-04 07:44 | NUR ---
PT RESTING IN BED WITH EYES CLOSED. RESPIRATIONS EASY AND REGULAR
[2020-01-04 07:46] LABS: ALKALINE PHOSPHATASE 70 U/L (45-117); CPK 28 U/L (26-192)
[2020-01-04 08:10] LABS: TOTAL CELLS COUNTED 100 #CELLS
[2020-01-04 08:11] LABS: PLATELET SUFFICIENCY NORMAL (NORMAL)
--- NOTE | 2020-01-04 10:54 | NUR ---
PT BED AND GOWN CHANGED. PT DENIES PAIN. PT STATES THAT SHE IS NOT HUNGRY AND JUST WANTS WATER. PROVIDED WITH WATER. PT TURNED AT THIS TIME.
--- NOTE | 2020-01-04 11:53 | NUR ---
PT RESTING IN BED WITH EYES CLOSED. RESPIRATIONS EASY AND REGULAR.
[2020-01-04] MEDS ORDERED: CELEXA10 MG PO (16:10)
[2020-01-04] MEDS ORDERED: ARICEPT10 M1 PO (16:18)
--- NOTE | 2020-01-04 18:00 | NUR ---
A 79, admitted to 4E, under the services of PEPPER Fuentes DO with a diagnosis of YANCY. Chief complaint is weakness generalized malaise. Patient arrived via stretcher from ER. Monitor applied. Initial assessment completed. Vital signs taken and recorded. See assessment for past medical history, medications and allergies. Patient and/or family oriented to unit. [facility] visitation policy reviewed. SPENSER ALFORD
[2020-01-05] VITALS: BP 104/51
--- NOTE | 2020-01-05 05:16 | NUR ---
24 HR chart check completed.
[2020-01-05 06:17] LABS: ALBUMIN 2.6 gm/dl (3.1-4.5); BUN 22 mg/dl (7-24); CHLORIDE 110 mmol/L (98-107); POTASSIUM 4.2 mmol/L (3.5-5.1); SGOT/AST 15 IU/L (3-35); SGPT/ALT 9 U/L (12-78); SODIUM 143 mmol/L (136-145)
[2020-01-05 06:20] LABS: ALKALINE PHOSPHATASE 69 U/L (45-117); CPK 25 U/L (26-192); LDH 153 U/L (84-246); TOTAL PROTEIN 6.6 gm/dL (6.4-8.2)
[2020-01-05 06:33] LABS: HEMATOCRIT 33.3 % (37.0-47.0); MEAN CELL VOLUME 101.8 fl (81.0-99.0); MEAN CORPUSCULAR HGB 31.8 pg (27.0-31.0); MEAN CORPUSCULAR HGB CONC 31.2 g/dl (33.0-37.0); MEAN PLATELET VOLUME 10.8 fl (9.6-12.3); PLATELET COUNT AUTOMATED 148 10*3/uL (130-400); RED BLOOD COUNT 3.27 10*6/uL (4.10-5.10); RED CELL DISTRI WIDTH 13.4 % (0-14.5); WHITE BLOOD COUNT 9.9 10*3/uL (4.8-10.8)
[2020-01-05 07:31] LABS: TOTAL CELLS COUNTED 100 #CELLS
[2020-01-05 07:32] LABS: BURR CELLS FEW
[2020-01-05 07:33] LABS: PLATELET SUFFICIENCY NORMAL (NORMAL)
[2020-01-05 08:00] VITALS: BP 117/53
[2020-01-05] MEDS ORDERED: HIGH POTENCY I134 MG PO (10:56)
[2020-01-05 12:00] VITALS: BP 134/73
--- NOTE | 2020-01-05 12:59 | NUR ---
Dehydrogenation Operator in to talk to patient. Patient states lives at home with daughter and family. There are no steps in the home. Physician: [facility]acy: [facility] services: none at present Patient's level of ADLs: MODERATE ASSIST Patient has working utilities: all working DME: shower chair, cane, walker Follow-up physician's appointment after d/c: will be made by hospitalist nurse director upon discharge Does patient want to access PORTAL?: no Discharge plan discussed with patient's daughter Mago. she states patient lives at home with her and her and family. she states there are 6 people living in the home. she states patient uses a cane to ambulate and requires assist of one for adls. she states she has a cane, walker, shower chair and a step in shower. daughter would like patient to return home when discharged. daughter also stated everyone in their home is quarantined due to patient's other daughter being positive and being in the home. daughter stated patient does not wear oxygen at home. discussed with her VNA and she stated she would like [facility] referred to see patient, case management will follow and notify [facility] when patient is discharged. JACQUE WINSTON
[2020-01-05 16:03] VITALS: BP 136/74
--- NOTE | 2020-01-05 19:06 | NUR ---
Notified by NIVIA Mathew that pt pox was 89% on RA and bp was low. I rechecked pt pox was 90% on ra when I went into room and I applied o2 at 2l. Pt bp difficult to hear to rt arm, noted 110/70 to left arm via manual cuff.
[2020-01-05 20:05] VITALS: BP 90/60
[2020-01-06] VITALS: BP 151/69
[2020-01-06 06:38] LABS: BASO % 0.1 % (0.0-1.0); EOS # 0.1 10*3/uL (0.0-0.4); EOS % 1.5 % (1.0-4.0); HEMATOCRIT 32.1 % (37.0-47.0); LYMPH # 0.7 10*3/uL (1.3-4.4); LYMPH % 9.6 % (27.0-41.0); MEAN CELL VOLUME 100.9 fl (81.0-99.0); MEAN CORPUSCULAR HGB 31.8 pg (27.0-31.0); MEAN CORPUSCULAR HGB CONC 31.5 g/dl (33.0-37.0); MEAN PLATELET VOLUME 10.4 fl (9.6-12.3); MONO # 0.4 10*3/uL (0.1-1.0); MONO % 4.7 % (3.0-9.0); NEUT # 6.2 10*3/uL (2.3-7.9); NEUT % 83.6 % (47.0-73.0); PLATELET COUNT AUTOMATED 163 10*3/uL (130-400); RED BLOOD COUNT 3.18 10*6/uL (4.10-5.10); RED CELL DISTRI WIDTH 13.5 % (0-14.5); WHITE BLOOD COUNT 7.4 10*3/uL (4.8-10.8)
[2020-01-06 06:59] LABS: ALBUMIN 2.5 gm/dl (3.1-4.5); BUN 28 mg/dl (7-24); CHLORIDE 107 mmol/L (98-107); POTASSIUM 3.8 mmol/L (3.5-5.1); SGOT/AST 15 IU/L (3-35); SGPT/ALT 10 U/L (12-78); SODIUM 139 mmol/L (136-145); TOTAL PROTEIN 6.1 gm/dL (6.4-8.2)
[2020-01-06 07:02] LABS: ALKALINE PHOSPHATASE 55 U/L (45-117); CPK 31 U/L (26-192); LDH 135 U/L (84-246)
[2020-01-06 08:00] VITALS: BP 156/64
--- NOTE | 2020-01-06 11:42 | NUR ---
PRANAY REACHED OUT TO PATIENTS DAUGHTER DAVID. DAVID CONFIRMED SHE WANTS THE PATIENT TO RETURN HOME WITH HER. SHE STATED SHE WOULD LIKE THE PATIENT TO HAVE [facility] AT DISCHARGE. CASE MANAGEMENT TO FOLLOW.
[2020-01-06 12:00] VITALS: BP 131/56
[2020-01-06 16:00] VITALS: BP 118/59
[2020-01-06 20:00] VITALS: BP 120/67
--- NOTE | 2020-01-06 23:12 | NUR ---
PRN RESTORIL GIVEN AT THIS TIME FOR C/O INSOMNIA WITH PERMISSION FROM PRIMARY RN. CALL LIGHT IS WITHIN REACH.
[2020-01-07] VITALS: BP 92/69
[2020-01-07 06:41] LABS: EOS % 0.7 % (1.0-4.0); HEMATOCRIT 34.4 % (37.0-47.0); LYMPH # 0.5 10*3/uL (1.3-4.4); LYMPH % 9.6 % (27.0-41.0); MEAN CELL VOLUME 98.9 fl (81.0-99.0); MEAN CORPUSCULAR HGB 31.6 pg (27.0-31.0); MEAN PLATELET VOLUME 10.4 fl (9.6-12.3); MONO # 0.2 10*3/uL (0.1-1.0); MONO % 3.7 % (3.0-9.0); NEUT # 4.6 10*3/uL (2.3-7.9); NEUT % 85.3 % (47.0-73.0); PLATELET COUNT AUTOMATED 187 10*3/uL (130-400); RED BLOOD COUNT 3.48 10*6/uL (4.10-5.10); RED CELL DISTRI WIDTH 13.2 % (0-14.5); WHITE BLOOD COUNT 5.4 10*3/uL (4.8-10.8)
[2020-01-07 07:06] LABS: ALBUMIN 2.5 gm/dl (3.1-4.5); BUN 22 mg/dl (7-24); CHLORIDE 108 mmol/L (98-107); POTASSIUM 3.7 mmol/L (3.5-5.1); SODIUM 140 mmol/L (136-145)
[2020-01-07 07:09] LABS: ALKALINE PHOSPHATASE 56 U/L (45-117); CREATININE 0.72 mg/dL (0.55-1.02); SGOT/AST 13 IU/L (3-35); SGPT/ALT 10 U/L (12-78); TOTAL PROTEIN 6.3 gm/dL (6.4-8.2)
[2020-01-07 08:00] VITALS: BP 154/66
--- NOTE | 2020-01-07 11:38 | NUR ---
PT DGTR CALLED, STATES SHE DOES NOT WANT THE PT TO GO TO SNF ON D/C. DGRT SPOKE WITH STRIPPER APPRENTICE ON 01/05 ABOUT THIS. SHE IS PLANNING ON D/C TO HOME WITH [facility]. NOTIFIED.
[2020-01-07 12:00] VITALS: BP 148/61
[2020-01-07 16:00] VITALS: BP 125/53
[2020-01-07 20:00] VITALS: BP 124/74
--- NOTE | 2020-01-07 20:45 | NUR ---
PT RESTING IN BED WITH HOB ELEVATED. RESP-EASY AND REGULAR. NO C/O AT THIS TIME. CALL LIGHT IN REACH. REPOSITIONED IN BED FOR COMFORT.
--- NOTE | 2020-01-07 22:45 | NUR ---
PT RESTING IN BED. TOLERATED ROUTINE IV MEDICATION. NO C/O AT THIS TIME. CALL LIGHT IN REACH.
--- NOTE | 2020-01-07 23:47 | NUR ---
PRN RESTORIL GIVEN AT THIS TIME FOR C/O INSOMNIA. CALL LIGHT IS WITHIN REACH, WILL MONITOR EFFECT.
[2020-01-08] VITALS: BP 120/74
--- NOTE | 2020-01-08 05:15 | NUR ---
TOLERATED ROUTINE MED WITH NO PROBLEM. REPOSITIONED IN BED. CALL LIGHT IN REACH. BED ALARM ON.
[2020-01-08 08:00] VITALS: BP 118/74
--- NOTE | 2020-01-08 08:45 | NUR ---
PHYSICAL THERAPY Physical Therapy evaluation completed on 4th floor with full evaluation to follow. Recommend physical therapy per plan of care and SNF upon discharge. Thank you for this referral. Cooper Garcia SPT Iram Angela PT,SPT
--- NOTE | 2020-01-08 08:45 | NUR ---
Occupational Therapy evaluation completed on 4 with full eval to follow. Precautions include fall risk,impaired balance, safety, ADLs,malaise, nausea, high complexity level 53633. Recommend OT per POC and SNF to enable safe return home w/ daugther. Per case management note, daughter would like patient to return home under her care with home health services as able. Thank you for this referral. Rafia Blair OTR/L
--- NOTE | 2020-01-08 09:15 | NUR ---
case management contacted patient's daughter Mago, who patient lives with. again discussed a discharge plan including a short term usp with 5 days of rehab and 24 hour care prior to returning home, daughter declined, she stated patient would be returning home with her and rest of family with [facility]. case management will notify [facility] when patient is discharged
--- NOTE | 2020-01-08 13:31 | NUR ---
OT NOTE Pt was seen this P.M. 1:1 for 15 minute OT session. Upon arrival pt was supine in bed. Pt identified by name and and had complaints of 2-3/10 R hip pain. Pt transferred supine to sit EOB with maxA X 2. While sitting EOB pt presented with P/P- sitting balance due to L lateral lean that required mod-maxA to correct. Pt completed two sit to stand transfers from bed level with maxA x2 and use of w/w for UE support. Challenged pt's static standing tolerance needed for increased I in self care tasks and functional transfers. Pt was able to tolerate aprox 30 seconds at a time before sitting due to fatigue. Pt had one complaint of feeling nauseated, however after aprox 60 seconds pt had no other complaints. Pt then transferred sit to supine with maxA X 2 and was repositioned with maxA x 2. There she was left with call light in hand, tray table in place, and bed alarm activated for safety. Continue with rec D/C plan to SNF. MIKAELA Anthony/Emily
[2020-01-08] MEDS ORDERED: AMOXICILLIN500 M3 PO (13:46)
--- NOTE | 2020-01-08 13:52 | NUR ---
PHYSICAL THERAPY TREATMENT TIME: OUT 1:30 PM 15 MINUTES TOTAL Patient presented to therapy in supine with head of bed elevated and bed alarm on. Patient is not on spo2. Patient has no IVs infusing at this time. Patient gives informed consent for treatment. Patient was identified by name and on wristband. Patient reports significant LBP that she can't give a number for. Patient performed supine <> sitting on EOB with MAX A X 2. Patient sat on EOB with MOD A X 1 - MIN A X 1 most of the time she was sitting to prevent Left and retrograde lean. Patient STS x 2 SEPERATE STANDS with MAX A X 2. Patient has moderate to severe LBP preventing her from being able to sit or stand for very long. Patient stood for < 10 seconds each time. Patient became fatigued and had to lie back down in bed with MAX A X 2. Patient was moved up to head of bed with MAX A X 2 using sheet. Patient was left in supine in bed with head of bed elevated and bed alarm on. Call light left near patient. Patient was 1:1 with this DOCTOR OF PODIATRIC MEDICINE for 15 minutes total. FRANSICO HAMMER DOCTOR OF PODIATRIC MEDICINE
--- NOTE | 2020-01-08 13:57 | NUR ---
case management received a message that patient is discharged to home today, contacted [facility], spoke to Julisa, informed her that patient is discharged to home today
[2020-01-08] MEDS ORDERED: SIMVASTATIN40 MG PO (15:10)
[2020-01-08] MEDS ORDERED: CELEXA10 MG PO (15:10)
[2020-01-08 16:04] VITALS: BP 126/51
--- NOTE | 2020-01-08 17:01 | NUR ---
Discharge instructions reviewed with patient/family. Patient receptive and verbalizes understanding. Follow-up care arranged. Written instructions given to patient/family. JONO BALLESTEROS
--- NOTE | 2020-01-09 07:32 | NUR ---
PHYSICAL THERAPY CO-SIGN I approve of the Physical Therapy notes written above. Annie Caruso PT
--- NOTE | 2020-01-09 07:50 | NUR ---
OCCUPATIONAL THERAPY CO-SIGN I approve of the Occupational Therapy notes written above. STUART BRAND, OTR/L
--- NOTE | 2020-01-09 08:11 | NUR ---
[facility] visiting nurses is also out of network with patients insurance. Faxed referral to [facility], waiting on review/acceptance.
--- NOTE | 2020-01-09 13:51 | NUR ---
[facility] is in network and has accepted this patient. They stated they also had services for this patient back in August of this past year. They will contact Dr. Fang office for a new home health order.
== END 2020-01-08 17:20 | disposition home health service (06) | DRG 871 ==
LOC: ED 18:29 → EDHOLD 21:47 → 4E 21:47
PROVIDERS: Emergency Medicine; Family Medicine; Internal Medicine; ADMIT Internal Medicine; ATTEND Internal Medicine
DX: A41.9 Sepsis, unspecified organism (principal); E43 Unspecified severe protein-calorie malnutrition; N39.0 Urinary tract infection, site not specified; I48.20 Chronic atrial fibrillation, unspecified; I13.0 Hypertensive heart and chronic kidney disease with heart failure and stage 1 through stage 4 chronic kidney disease, or unspecified chronic kidney disease; R00.1 Bradycardia, unspecified; D53.9 Nutritional anemia, unspecified; R73.9 Hyperglycemia, unspecified; Z20.828 Contact with and (suspected) exposure to other viral communicable diseases; I99.9 Unspecified disorder of circulatory system; M54.9 Dorsalgia, unspecified; J30.2 Other seasonal allergic rhinitis; I50.9 Heart failure, unspecified; K21.9 Gastro-esophageal reflux disease without esophagitis; N32.81 Overactive bladder; I34.0 Nonrheumatic mitral (valve) insufficiency; I25.10 Atherosclerotic heart disease of native coronary artery without angina pectoris; N18.31 Chronic kidney disease, stage 3a; G89.29 Other chronic pain; Z96.653 Presence of artificial knee joint, bilateral; K58.0 Irritable bowel syndrome with diarrhea; F03.90 Unspecified dementia, unspecified severity, without behavioral disturbance, psychotic disturbance, mood disturbance, and anxiety; F32.9 Major depressive disorder, single episode, unspecified; Z90.49 Acquired absence of other specified parts of digestive tract; Z90.710 Acquired absence of both cervix and uterus; Z98.49 Cataract extraction status, unspecified eye; Z95.5 Presence of coronary angioplasty implant and graft; Z82.3 Family history of stroke; Z79.899 Other long term (current) drug therapy; I25.2 Old myocardial infarction; Z68.32 Body mass index [BMI] 32.0-32.9, adult

== ENCOUNTER 2020-03-13 14:38 | Inpatient (IN) | payer MEDICARE ==
[~2020-03-13] VITALS: Ht 165.1 cm; Wt 73.0 kg
[~2020-03-13 14:38] MED LIST changes: +AMOXICILLIN500 M3 PO; +ARICEPT10 M1 PO; +CELEXA10 MG PO; +HIGH POTENCY I134 MG PO
[2020-03-13 14:46] VITALS: BP 127/72
[2020-03-13 15:13] LABS: HEMATOCRIT 36.1 % (37.0-47.0); MEAN CELL VOLUME 103.4 fl (81.0-99.0); MEAN CORPUSCULAR HGB 32.7 pg (27.0-31.0); MEAN CORPUSCULAR HGB CONC 31.6 g/dl (33.0-37.0); MEAN PLATELET VOLUME 10.3 fl (9.6-12.3); PLATELET COUNT AUTOMATED 140 10*3/uL (130-400); RED BLOOD COUNT 3.49 10*6/uL (4.10-5.10); RED CELL DISTRI WIDTH 13.5 % (0-14.5); WHITE BLOOD COUNT 6.6 10*3/uL (4.8-10.8)
[2020-03-13 15:27] LABS: ACT PARTIAL THROMBO TIME 28.5 SECONDS (20.0-32.1); INTERNATIONAL NORM RATIO 1.1 (2.0-3.5)
[2020-03-13 15:29] LABS: ALBUMIN 3.1 gm/dl (3.1-4.5); CREATININE 1.25 mg/dL (0.55-1.02); POTASSIUM 3.5 mmol/L (3.5-5.1); TOTAL PROTEIN 6.9 gm/dL (6.4-8.2); TROPONIN I 0.022 ng/ml (<0.045)
[2020-03-13 15:40] LABS: PLATELET SUFFICIENCY NORMAL (NORMAL); TOTAL CELLS COUNTED 100 #CELLS
[2020-03-13 15:44] VITALS: BP 130/80
[2020-03-13 15:58] LABS: BILIRUBIN 1+ (Negative); BLOOD 2+ (Negative); CLARITY Turbid (Clear); COLOR Dark Yellow (Yellow); GLUCOSE Negative (Negative); KETONE Negative (Negative); LEUKO ESTERASE 3+ (Negative); NITRITE Negative (Negative); PH 5.5 (4.5-8.0); SPECIFIC GRAVITY 1.015 (1.001-1.030)
[2020-03-13 16:04] LABS: WBC TNTC wbc/hpf (0-5)
[2020-03-13 17:01] VITALS: BP 120/65
[2020-03-13 19:30] VITALS: BP 140/82
[2020-03-13 21:13] VITALS: BP 116/56
[2020-03-13 22:42] VITALS: BP 130/59
[2020-03-14 00:40] VITALS: BP 114/60
[2020-03-14 01:20] VITALS: BP 114/60
[2020-03-14 10:32] LABS: ALBUMIN 2.5 gm/dl (3.1-4.5); ALKALINE PHOSPHATASE 128 U/L (45-117); BUN 27 mg/dl (7-24); CHLORIDE 106 mmol/L (98-107); CREATININE 1.01 mg/dL (0.55-1.02); POTASSIUM 3.1 mmol/L (3.5-5.1); SGOT/AST 220 IU/L (3-35); SGPT/ALT 261 U/L (12-78); SODIUM 138 mmol/L (136-145); TOTAL PROTEIN 5.7 gm/dL (6.4-8.2)
[2020-03-14 12:00] VITALS: BP 104/59
[2020-03-14 20:00] VITALS: BP 118/65
[2020-03-15] VITALS: BP 121/53
[2020-03-15 07:02] LABS: BASO % 0.1 % (0.0-1.0); EOS # 0.4 10*3/uL (0.0-0.4); EOS % 5.5 % (1.0-4.0); HEMATOCRIT 32.6 % (37.0-47.0); LYMPH # 0.4 10*3/uL (1.3-4.4); LYMPH % 4.8 % (27.0-41.0); MEAN CELL VOLUME 104.2 fl (81.0-99.0); MEAN CORPUSCULAR HGB 32.3 pg (27.0-31.0); MEAN PLATELET VOLUME 10.7 fl (9.6-12.3); MONO # 0.2 10*3/uL (0.1-1.0); MONO % 2.3 % (3.0-9.0); NEUT # 6.5 10*3/uL (2.3-7.9); NEUT % 86.6 % (47.0-73.0); PLATELET COUNT AUTOMATED 112 10*3/uL (130-400); RED BLOOD COUNT 3.13 10*6/uL (4.10-5.10); RED CELL DISTRI WIDTH 13.3 % (0-14.5); WHITE BLOOD COUNT 7.5 10*3/uL (4.8-10.8)
[2020-03-15 07:32] LABS: ALBUMIN 2.4 gm/dl (3.1-4.5); CHLORIDE 107 mmol/L (98-107); POTASSIUM 3.6 mmol/L (3.5-5.1); SODIUM 137 mmol/L (136-145)
[2020-03-15 07:36] LABS: ALKALINE PHOSPHATASE 109 U/L (45-117); BUN 25 mg/dl (7-24); CREATININE 0.86 mg/dL (0.55-1.02); SGOT/AST 92 IU/L (3-35); SGPT/ALT 168 U/L (12-78); TOTAL PROTEIN 5.4 gm/dL (6.4-8.2)
[2020-03-15 10:07] LABS: HEP B CORE AB, IGM Negative (Negative); HEPATITIS B SURFACE AG Negative (Negative); HEPATITIS C VIRUS ANTIBODY 0.1 s/co (0.0-0.9)
[2020-03-15 12:00] VITALS: BP 136/67
[2020-03-15 20:00] VITALS: BP 106/67
[2020-03-15 20:02] VITALS: BP 100/50
[2020-03-15 20:17] VITALS: BP 102/53
[2020-03-15 20:32] VITALS: BP 108/61
[2020-03-16] VITALS: BP 120/53
[2020-03-16 07:47] LABS: BASO % 0.2 % (0.0-1.0); EOS # 0.4 10*3/uL (0.0-0.4); EOS % 7.8 % (1.0-4.0); HEMATOCRIT 31.4 % (37.0-47.0); LYMPH # 0.5 10*3/uL (1.3-4.4); LYMPH % 9.9 % (27.0-41.0); MEAN CELL VOLUME 103.3 fl (81.0-99.0); MEAN CORPUSCULAR HGB 32.9 pg (27.0-31.0); MEAN CORPUSCULAR HGB CONC 31.8 g/dl (33.0-37.0); MEAN PLATELET VOLUME 10.7 fl (9.6-12.3); MONO # 0.3 10*3/uL (0.1-1.0); NEUT # 4.1 10*3/uL (2.3-7.9); NEUT % 76.7 % (47.0-73.0); PLATELET COUNT AUTOMATED 114 10*3/uL (130-400); RED BLOOD COUNT 3.04 10*6/uL (4.10-5.10); RED CELL DISTRI WIDTH 13.2 % (0-14.5); WHITE BLOOD COUNT 5.4 10*3/uL (4.8-10.8)
[2020-03-16 08:19] LABS: ALBUMIN 2.2 gm/dl (3.1-4.5); ALKALINE PHOSPHATASE 97 U/L (45-117); BUN 19 mg/dl (7-24); CHLORIDE 108 mmol/L (98-107); CREATININE 0.69 mg/dL (0.55-1.02); POTASSIUM 3.4 mmol/L (3.5-5.1); SGOT/AST 41 IU/L (3-35); SGPT/ALT 116 U/L (12-78); SODIUM 139 mmol/L (136-145); TOTAL PROTEIN 5.3 gm/dL (6.4-8.2)
[2020-03-16] MEDS ORDERED: Carafate1 GM PO (08:29)
[2020-03-16] MEDS ORDERED: ZYVOX600 MG PO (08:29)
[2020-03-16 12:00] VITALS: BP 109/68; BP 143/84
== END 2020-03-16 14:51 | disposition other institution (70) | DRG 377 ==
LOC: ED 14:38 → EDHOLD 18:08 → 5E 18:08
PROVIDERS: Emergency Medicine; Internal Medicine; ADMIT Internal Medicine; ATTEND Internal Medicine
PROC: 0DB68ZX Excision of Stomach, Via Natural or Artificial Opening Endoscopic, Diagnostic (ICD-10-PCS; principal; 2020-03-15)
DX: K29.71 Gastritis, unspecified, with bleeding (principal); G93.41 Metabolic encephalopathy; N39.0 Urinary tract infection, site not specified; I48.21 Permanent atrial fibrillation; I42.9 Cardiomyopathy, unspecified; N17.9 Acute kidney failure, unspecified; Z96.653 Presence of artificial knee joint, bilateral; R74.01 Elevation of levels of liver transaminase levels; D64.9 Anemia, unspecified; B95.2 Enterococcus as the cause of diseases classified elsewhere; E87.6 Hypokalemia; F03.90 Unspecified dementia, unspecified severity, without behavioral disturbance, psychotic disturbance, mood disturbance, and anxiety; Z60.2 Problems related to living alone; I12.9 Hypertensive chronic kidney disease with stage 1 through stage 4 chronic kidney disease, or unspecified chronic kidney disease; N18.30 Chronic kidney disease, stage 3 unspecified; Z20.822 Contact with and (suspected) exposure to COVID-19; Z95.5 Presence of coronary angioplasty implant and graft; Z90.49 Acquired absence of other specified parts of digestive tract; Z90.710 Acquired absence of both cervix and uterus; Z98.49 Cataract extraction status, unspecified eye; Z82.3 Family history of stroke; Z80.8 Family history of malignant neoplasm of other organs or systems; Z79.01 Long term (current) use of anticoagulants